=== PATIENT | female | born 1945 | race Caucasian/White ===

== ENCOUNTER 2021-10-25 13:23 | Inpatient (IN) ==
[2021-10-25] MEDS ORDERED: IOPAMIDOL 100 ML BOTTLE IV ONE (13:24)
[2021-10-25 13:49] LABS: POC Calcium, Ionized 1.01 (1.16-1.32); POC Creatinine 1.6 (0.6-1.2); POC Potassium 3.3 (3.3-5.1)
[2021-10-25] MEDS ORDERED: 0.9 % SODIUM CHLORIDE 1,000 ML IV ONE ×2 (13:53→14:15)
--- NOTE | 2021-10-25 13:56 | Emergency Department Note ---
Weakness HPI General Chief complaint: Weakness Stated complaint: Weakness Time Seen by Provider: 10/25/21 13:28 Source: patient Mode of arrival: ambulatory Limitations: no limitations History of Present Illness HPI Narrative: Narrative: 76-year-old female with a history of dysphagia, esophageal dilatation, atrial fibrillation with RVR, TIA, diabetes, bilateral mastectomy, PVD, renal insufficiency, venous insufficiency, GERD, hypothyroidism, hyperlipidemia Parkinson's and arthritis presents the ER to be evaluated for weakness, dysphagia and anorexia. She states she was admitted to [facility] on the where she was found to have an enlarged appendix. This was obvious for several days without antibiotics and she was ultimately discharged with follow-up to gastroenterology whom she has not followed up with yet. He states she has not been able to keep down food or water. She has a very decreased appetite and states everything tastes terrible to her. She has not had COVID according to her and her daughter. Her daughter states her hallucinations have been worsening over the past few months. She has had these due to her Parkinson's and her neurologist is aware of this. She states she has become more paranoid. None of these have happened acutely but it has been a progression over time. She states she has a history of incontinence but this is gotten better over time which may be due to her renal function. She has not had fever, chills, body aches, nausea or vomiting. Just extreme lack of appetite, lack of oral intake to both fluids and food. She states she has a generalized burning of her epigastrium. She is not having right lower quadrant tenderness. She denies dysuria, urgency, frequency, chest pain, chest pressure or shortness of breath. Related Data Home Medications Medication Instructions Recorded Confirmed Nanosphere Contour Link 2.4 W/DEVICE KIT IV PUSH (TEST DOSE) BID 02/21/19 10/17/21 brinzolamide 1 % eye 1 drp OPHTHALMIC BID ml 02/21/19 10/17/21 drops,suspension (Azopt) carbidopa 25 mg-levodopa 100 mg 2 tab PO TID 02/21/19 10/17/21 disintegrating tablet aspirin 81 mg tablet,delayed 81 mg PO QDAY tab 12/15/19 10/17/21 release (Adult Low Dose Aspirin) bimatoprost 0.01 % eye drops 1 drp OPHTHALMIC QDAY 12/15/19 10/17/21 bisacodyl 5 mg tablet,delayed 10 mg PO QDAY PRN tab 12/15/19 10/17/21 release (Dulcolax (bisacodyl)) brimonidine 0.2 % eye drops 1 drp OPHTHALMIC BID ml 12/15/19 10/17/21 glucagon HCl 1 mg solution for 1 mg SUB-Q Q20M PRN 12/15/19 10/17/21 injection (Glucagon (HCl) Emergency Kit) sodium phosphates 19 gram-7 118 ml ME QDAY PRN ml 12/15/19 10/17/21 gram/118 mL enema (Fleet Enema) entacapone 200 mg tablet 200 mg PO QHS tab 10/17/21 10/17/21 escitalopram oxalate 20 mg tablet See Rx Instructions .ROUTE 10/17/21 .COMPLEX tab pimavanserin 34 mg capsule 34 mg PO QDAY 10/17/21 10/17/21 spironolactone 25 1 tab PO QDAY tab 10/17/21 mg-hydrochlorothiazide 25 mg tablet Previous Rx's Medication Instructions Recorded tramadol 50 mg tablet 50 mg PO .Q4-6H PRN #120 tab 05/24/20 metoprolol tartrate 25 mg tablet See Rx Instructions .ROUTE 03/11/21 .COMPLEX #60 tab blood sugar diagnostic (Contour #100 each 05/02/21 Next Test Strips) baclofen 10 mg tablet See Rx Instructions .ROUTE 06/12/21 .COMPLEX #30 tab omeprazole 20 mg capsule,delayed See Rx Instructions .ROUTE 07/01/21 release .COMPLEX #90 cap glipizide 10 mg tablet 10 mg PO BID #60 tab 09/05/21 losartan 50 mg tablet See Rx Instructions .ROUTE 10/07/21 .COMPLEX #45 tab sodium chloride 1 gram tablet 1,000 mg PO BID PRN #60 tab 10/17/21 bupropion HCl 100 mg tablet,12 hr See Rx Instructions .ROUTE 10/22/21 sustained-release .COMPLEX #90 tab levothyroxine 75 mcg tablet See Rx Instructions .ROUTE 10/22/21 .COMPLEX #30 tab Allergies Allergy/AdvReac Type Severity Reaction Status Date / Time telmisartan Allergy Severe did not Verified 10/17/21 14:29 like KATLYN Inhibitors AdvReac Unknown Cough Verified 10/17/21 14:29 cephalexin AdvReac Unknown Rash Verified 10/17/21 14:29 diazepam [From Valium] AdvReac Unknown Unknown Verified 10/17/21 14:29 lisinopril AdvReac Unknown Unknown Verified 10/17/21 14:29 Nbqakox-ULL-BtX Reductase AdvReac Unknown Other Verified 10/17/21 14:29 Inhibitor [Univgeo-Iru-Azv Reductase Inhibitor] Review of Systems ROS ROS Narrative: Narrative: All systems ED: reviewed and negative except as stated. [facility] Narrative Patient History Narrative: Narrative: Medical/Surgical/Family History All Active Problems (Updated 10/25/21 @ 16:21 by Tristian Wallace PA-C) Acute UTI (Acute) Hypotension (Acute) Dysphagia (Acute) UTI (urinary tract infection) (Acute) Skin lesion (Acute) Lymphedema of arm (Acute) Seasonal allergies (Acute) Cough (Acute) Dyspnea on exertion (Acute) Open wound (Acute) Atrial fibrillation (Acute) Hyponatremia (Acute) TIA (transient ischemic attack) (Acute) Diabetes 1.5, managed as type 2 (Acute) Memory changes (Acute) Acute bronchitis (Acute) Pedal edema (Acute) Adenocarcinoma of endometrium (Chronic) Glaucoma (Chronic) Anemia (Chronic) Acute medial meniscus tear (Chronic) Cough due to KATLYN inhibitor (Chronic) Physical exam (Chronic) Carpal tunnel syndrome (Chronic) Abnormality of gait (Chronic) Peripheral neuropathy (Chronic) Back pain (Chronic) PVD (peripheral vascular disease) (Chronic) Unspecified venous (peripheral) insufficiency (Chronic) Depression (Chronic) GERD (gastroesophageal reflux disease) (Chronic) Hypothyroidism (Chronic) Hyperlipidemia (Chronic) Carcinoma in situ of breast (Chronic) Fatigue (Chronic) Vitamin D deficiency (Chronic) Lymphedema of right arm (Chronic) Varicose veins of other specified sites (Chronic) Incontinence without sensory awareness (Chronic) Hyperplastic adenomatous polyp of stomach (Chronic) Other sleep disturbances (Chronic) Benign neoplasm of ascending colon (Chronic) Skin lesion (Chronic) 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) Adult onset diabetes mellitus with ketoacidosis (Chronic) Parkinson's disease (Chronic) HTN (hypertension) (Chronic) Herpes zoster (Chronic) Encounter for preventative adult health care examination (Chronic) Encounter for long-term (current) use of medications (Chronic) Arthritis of right knee (Chronic) Medical History (Updated 10/25/21 @ 16:21 by Tristian Wallace PA-C) Abnormality of gait Acute medial meniscus tear Adenocarcinoma of endometrium Adult onset diabetes mellitus with ketoacidosis Anemia Arthritis of right knee Back pain Benign neoplasm of ascending colon Carcinoma in situ of breast Carpal tunnel syndrome Cough due to KATLYN inhibitor Depression Encounter for long-term (current) use of medications Encounter for preventative adult health care examination Fatigue GERD (gastroesophageal reflux disease) Glaucoma Herpes zoster HTN (hypertension) Hx of infection (~1992) Right leg Hyperlipidemia Hyperplastic adenomatous polyp of stomach Hypothyroidism Incontinence without sensory awareness Intraductal carcinoma in situ of left breast Lymphedema of right arm Other sleep disturbances Parkinson's disease Peripheral neuropathy Physical exam PVD (peripheral vascular disease) Skin lesion Unspecified venous (peripheral) insufficiency Varicose veins of other specified sites Vitamin D deficiency Surgical History History of left knee replacement (~2011) History of lumpectomy of right breast (~2013) w/ Rt nipple nodule excision Hx of breast surgery (~2013) Stereotactic breast Bx Hx of carpal tunnel repair (~2009) Neuroplasty Median Nerve Hx of dilation and curettage (~02/21/19) Hx of hysterectomy with oophorectomy (~2007) Hx of mastectomy (~2013) w/ Lymphatic mapping and SLN Bx Family History Father , 80 Y/O CVA (cerebral vascular accident) Social History Smoking Status: Never smoker Exam Narrative Narrative: Narrative: Gen: No acute distress, patient lying in bed with no increased work of breathing Eyes: PERRL, no conjunctival injection , and symmetrical lids. Sclerae non icteric HENMT: Normocephalic Atraumatic head, external nose and ears. Dry MM. Neck: Symmetric, trachea midline, no JVD CVS: +S1/S2, No murmurs or gallops. Radial pulses 2+ and equal bilat. RESP: Unlabored respiratory effort . Clear to auscultation bilaterally (CTAB). No noted wheezes rales or ronchi. GI: Morbidly obese abdomen, mild tenderness over the epigastrium, no focal tenderness, rebound tenderness, guarding or rigidity, no evidence of peritonitis. MSK: No tenderness to palpation, soft compartments, no pitting edema, varicosities of the lower extremity, normal sensation, cap refill less than 2 Skin: Warm, Dry . No rashes or lesions . Cap refill less than 2. Neuro: Pill-rolling tremor, tremor of the right lower extremity, is apparently baseline for the patient. No focal deficit otherwise Psych: Awake, Alert, & Oriented (AAO) x3. Patient appears to be tired General Limitations: no limitations Course Vital Signs Vital signs: Vital Signs Pulse Rate 144 H 10/25/21 13:24 Respiratory Rate 20 10/25/21 13:24 Blood Pressure 132/94 10/25/21 13:24 Pulse Oximetry (%) 98 10/25/21 13:24 Pulse Rate 74 10/25/21 13:40 Respiratory Rate 15 10/25/21 13:40 Blood Pressure 161/116 10/25/21 13:40 Pulse Oximetry (%) 97 10/25/21 13:40 [facility] MDM Narrative Medical decision making narrative: Narrative: Patient was seen at [facility] on the and discharged on the . She was discharged without antibiotics or appendectomy. The general surgeon did not believe she had appendicitis. Although she did have dilatation of the appendix. Today she presents anorexic, weak and states she has not kept down food or water and has general burning of her epigastrium. She has had esophageal stricture in the past as well as polyps of her stomach. She denies fever, chills, body aches, nausea, vomiting, chest pain, chest pressure or shortness of breath. She is tachycardic at a rate of 131 with rapid ventricular response. Patient is not been keeping fluid down. There is no evidence of acute ischemia on her EKG. This is likely a response from her not intaking enough fluid. She does have some renal insufficiency. Her creatinine is 1.6 but adjusted for age with 2020 CKDEPI creatinine guidelines her GFR is 34. Given the patient's history of possible appendicitis and her tachycardia I cannot rule out possible sepsis. She will be started on a liter of fluid and a lactate will be drawn. No hx of HF. Given the previous dilatation of the appendix and esophageal dysmotility I would like to do a CT scan of the chest abdomen pelvis to rule out any insidious process. She will also be evaluated with CBC, CMP, lipase, UA and TSH. Antibiotics will be withheld until lactate is identified and to see if she is fluid responsive. Given the patient has had progressive paranoia and hallucinations over time and her daughter is concerned. We will do a CT scan of the brain without contrast as well. Pt has no hx of heart failure. CBC: Slightly hemoconcentrated otherwise unremarkable. Chem-8: Acute kidney injury otherwise unremarkable Hepatic panel: Unremarkable Lipase: Unremarkable Lactate: 3.44 elevated, second liter of fluid as well as cefepime ordered at this time. Sepsis considered at 1416. Blood cultures: Pending TSH: normal UA: Elevated bacteria, leuk esterase and white count CT brain without contrast: IMPRESSION: 1. No intracranial hemorrhage 2. No acute abnormality CT chest abdomen pelvis: IMPRESSION: 1. Mildly enlarged main pulmonary artery. This may be secondary to pulmonary arterial hypertension. 2. Mild cardiomegaly 3. 15 mm calcified left adrenal nodule considered benign 4. Benign renal cysts 5. Small umbilical hernia containing only fat Patient is in A. fib with RVR, as is her baseline. However her rate was 131. Her blood pressure is 90 systolic. She had questionable developing appendicitis after her recent stay. She continues to have dysphagia and anorexia. Sepsis considered at 1416. She will be started on cefepime and will be given a second liter of fluid. Her lactate is 3.44. Repeat will be ordered before 6 hours. Patient suggested ideal body weight is 116 pounds. This is equal to 52 kg With a 30 mg/kg bolus this is just over 1500 mg. Patient has had a total of 2 L which meets the sepsis guidelines. She is not showing evidence of fluid overload at this time. Patient's heart rate and blood pressure have both improved with fluid resuscitation. Patient has elevated lactate, hypotension, tachycardia and urine consistent with urinary tract infection. She will have the diagnosis of urosepsis at this time. She is already had a 30 mg/kg bolus, cefepime and a repeat lactate will be ordered at this time. Hospitalist will be consulted. Dr. Elizondo will also be consulted to see if he will schedule for endoscopy. Repeat lactate: 1.11 Dr. Elizondo: If hospitalist admits he will evaluate the patient for possible endoscopy. Hospitalist: Graciously agreed to accept the patient for obs Lab Data Labs: Lab Results 10/25/21 Range/Units 13:37 POC Hct 51.0 H (36-48) POC Sodium 132 L (133-145) POC Potassium 3.3 (3.3-5.1) POC Chloride 93 L (96-108) POC Total CO2 22.0 (22-30) POC BUN 15 (6-20) POC Creatinine 1.6 H (0.6-1.2) POC Glucose 157 H (70-105) POC WB Ioniz Calcium 1.01 L (1.16-1.32) Discharge Plan Patient/Caregiver Discharge Instructions Pt seen by TOOL HARDENER/PA only: No Clinical Impression: Acute UTI Patient Disposition: Xfer As Outpt/Obs ([facility]) Follow up with: Aj Ly MD [Primary Care Provider] - Prescriptions: No Action aspirin [Adult Low Dose Aspirin] 81 mg tablet,delayed release (DR/EC) 81 mg PO QDAY 0RF bimatoprost 0.01 % drops 1 drp OPHTHALMIC QDAY 0RF brimonidine 0.2 % drops 1 drp OPHTHALMIC BID 0RF bisacodyl [Dulcolax (bisacodyl)] 5 mg tablet,delayed release (DR/EC) 10 mg PO QDAY PRN0RF Fleet Enema 19-7 gram/118 mL enema 118 ml ME QDAY PRN (Reason: constipation) 0RF Glucagon (HCl) Emergency Kit 1 mg recon soln 1 mg SUB-Q Q20M PRN0RF tramadol 50 mg tablet 50 mg PO .Q4-6H PRN (Reason: pain) Qty: 120 2RF metoprolol tartrate 25 mg tablet See Rx Instructions .ROUTE .COMPLEX Qty: 60 6RF Dose Instruction: TAKE ONE TABLET BY MOUTH TWICE DAILY Rx Instructions: TAKE ONE TABLET BY MOUTH TWICE DAILY (DME) Contour Next Test Strips Strip See Rx Instructions .ROUTE .MEDSUPPLY Qty: 100 5RF Rx Instructions: Use to test blood glucose twice daily baclofen 10 mg tablet See Rx Instructions .ROUTE .COMPLEX Qty: 30 3RF Dose Instruction: TAKE ONE TABLET BY MOUTH DAILY NEEDED FOR MUSCLE SPASM Rx Instructions: TAKE ONE TABLET BY MOUTH DAILY NEEDED FOR MUSCLE SPASM omeprazole 20 mg capsule,delayed release(DR/EC) See Rx Instructions .ROUTE .COMPLEX Qty: 90 3RF Dose Instruction: TAKE ONE CAPSULE BY MOUTH ONE TIME DAILY Rx Instructions: TAKE ONE CAPSULE BY MOUTH ONE TIME DAILY glipizide 10 mg tablet 10 mg PO BID Qty: 60 6RF losartan 50 mg tablet See Rx Instructions .ROUTE .COMPLEX Qty: 45 3RF Dose Instruction: TAKE 1/2 TABLET BY MOUTH ONCE A DAY IN THE MORNING Rx Instructions: TAKE 1/2 TABLET BY MOUTH ONCE A DAY IN THE MORNING levothyroxine 75 mcg tablet See Rx Instructions .ROUTE .COMPLEX Qty: 30 3RF Dose Instruction: TAKE ONE TABLET BY MOUTH ONE TIME DAILY Rx Instructions: TAKE ONE TABLET BY MOUTH ONE TIME DAILY bupropion HCl 100 mg tablet sustained-release 12 hr See Rx Instructions .ROUTE .COMPLEX Qty: 90 0RF Dose Instruction: TAKE ONE TABLET BY MOUTH ONE TIME DAILY Rx Instructions: TAKE ONE TABLET BY MOUTH ONE TIME DAILY Azopt 1 % drops,suspension 1 drp OPHTHALMIC BID 0RF carbidopa-levodopa 25-100 mg tablet,disintegrating 2 tab PO TID 0RF Nanosphere Contour Link 2.4 W/DEVICE KIT IV push (test dose) BID 0RF entacapone 200 mg tablet 200 mg PO QHS 0RF Rx Instructions: administer at the same time as l-dopa/carbidopa dose escitalopram oxalate 20 mg tablet See Rx Instructions .ROUTE .COMPLEX 0RF Dose Instruction: TAKE ONE TABLET BY MOUTH ONE TIME DAILY Rx Instructions: TAKE ONE TABLET BY MOUTH ONE TIME DAILY spironolacton-hydrochlorothiaz 25-25 mg tablet 1 tab PO QDAY 0RF pimavanserin 34 mg capsule 34 mg PO QDAY 0RF sodium chloride 1 gram tablet 1,000 mg PO BID PRN (Reason: electrolyte replenishment) Qty: 60 2RF
--- NOTE | 2021-10-25 14:10 | EKG ---
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 Measurements Intervals [place] Rate: 131 P: NV: QRS: -68 QRSD: 106 T: 114 QT: 330 QTc: 488 Interpretive Statements Atrial fibrillation LEFT ANTERIOR FASCICULAR BLOCK Electronically Signed On 10-25-2021 14:10:09 PDT by Zach Leal M.D. /store/[email or web address]/[id number]
[2021-10-25] MEDS ORDERED: CEFEPIME 2 GM VIAL IV ONE (14:14)
--- NOTE | 2021-10-25 14:40 | Emergency Department Note ---
ED Note Addendum Note Addendum: Dr. Paris Yanez dictating supervisory note. Please see [facility] note for complete history, physical, medical decision making. I do agree with their assessment and plan. I have independently evaluated and examined the patient. (Please note that portions of this note may have been completed with a voice re cognition program. Efforts were made to edit the dictations but occasionally words are mis-transcribed) 76-year-old female presents with daughter from home with a history of A fib not on blood thinners, TIA, DM, CKD, Parkinson's with paranoia and hallucinations presents with dysphagia nausea decreased appetite PO intake x 1 month. Was constipated however after Dulcolax and milk of magnesium did have bowel movements. Has had esophageal strictures with dilatation. Was recently seen evaluated at [facility] from October 19 to October 22 for decreased p.o. intake nausea vomiting enlarged appendix seen on CT scan observed and then subsequently discharged with close outpatient GI referral. Was unable to follow-up with GI. Comes into the ER was secondary to continued symptoms and generalized weakness. No reported chest pain shortness breath cough. No fevers or chills. Complains of intermittent lower abdominal discomfort. Was found to have soft blood pressures and was tachycardic. Metoprolol for the last week secondary to soft blood pressures. Suspect secondary to poor p.o. intake. taken off Quetiapine and started on Nuplazid 1 month prior CONSTITUTIONAL: Well-nourished elderly female BMI 44 wt 113 kg. appears uncomfortably restless. Not in acute distress. Non toxic. Awake alert and oriented x3. Cooperative, follows commands. HEAD: Normocephalic. Atraumatic. EYES: EOMI ENT: No drooling stridor. MM dry NECK: Supple. Full range of motion. Trachea midline CARDIOVASCULAR: Adequate peripheral perfusion. S1-S2. Irregularly irregular tachycardic at 130 beats on my exam. No murmurs rubs gallops. No JVD. No lower extremity edema. +2 radial pulses bilaterally. PULMONARY: Nonlabored. Speaking full sentences. Clear to auscultation bilaterally. No rhonchi wheeze or crackles. ABDOMINAL: Soft. Nondistended. Nontender. Positive bowel sounds. EXTREMITIES: No gross deformities. Moves all 4 extremities with good strength and tone. SKIN: Warm and dry. No rash. No petechiae. NEUROLOGY: Sensation is intact. No gross focal deficits. GCS of 15 Placed on monitor pulse ox. IV was established. Cultured. IV fluid hydration x2 L. Secondary to elevated lactic and VBG at 3.3 was ordered cefepime IV. Does have CKD with creatinine of 1.6. Will fluid hydrate and then subsequently CT chest abdomen pelvis for further evaluation as well as CT brain for pro gressively worsening paranoia hallucinations over the since. 12 EKG per ED MD interpretation does show rapid A. fib 131 bpm. Left anterior fascicular block. Normal axis. No ST elevations or depressions. No T wave abnormalities. Normal intervals. Old EKG none. CT head was negative. CT chest abdomen pelvis is negative for acute process. Urinalysis is consistent with infection. Improvement in vital signs after fluid hydration IV antibiotics. Updated on results clinical impressions treatment plan. Will be admitted for urosepsis.
[2021-10-25 14:48] LABS: Basophils # (Auto) 0.06 K/mcL (0.00-0.30); Basophils % (Auto) 0.7 % (0.0-2.0); Eosinophils # (Auto) 0.05 K/mcL (0.00-0.70); Eosinophils % (Auto) 0.6 % (0.0-7.0); Hematocrit 47.3 % (34.1-44.9); Hemoglobin 15.5 g/dL (11.2-15.7); Lymphocytes # (Auto) 1.15 K/mcL (1.50-4.80); Lymphocytes % (Auto) 13.4 % (15.5-49.0); Mean Cell Volume 93.1 fL (80.0-100.0); Mean Corpuscular HGB Conc 32.8 g/dL (31.0-36.0); Mean Platelet Volume 11.2 fL (7.4-10.4); Monocytes # (Auto) 0.63 K/mcL (0.10-0.90); Monocytes % (Auto) 7.3 % (1.0-12.0); Platelet Count 284 K/mcL (140-440); RBC 5.08 M/mcL (3.59-5.38); Red Cell Distribution Width 13.3 % (11.5-14.5); WBC 8.6 K/mcL (4.5-11.0)
--- NOTE | 2021-10-25 15:13 | Cat Scan Report ---
INDICATION: Hallucinations COMPARISON: None. TECHNIQUE: Axial noncontrast-enhanced images through the brain. Sagittally and coronally reformatted images. FINDINGS: Cerebral hemispheres:No acute intra-axial hemorrhage. Brain volume is considered to be within normal limits for age. There is white matter abnormality consistent with small vessel ischemic change in this 76-year-old patient. No focal intra-axial attenuation abnormality. No localized mass effect. No midline shift. Brainstem and cerebellum:No intra-axial abnormality Extra-axial:No acute hemorrhage. No subdural or epidural hematoma. No subarachnoid hemorrhage. Basilar cisterns are normal Calvarial:No calvarial fracture. No lytic lesion Temporal bones are negative. No destructive lesions Soft tissue, orbits, sinuses:Orbits and visualized facial soft tissues and paranasal sinuses are negative IMPRESSION: 1. No intracranial hemorrhage 2. No acute abnormality The exam was performed using radiation dose optimization techniques including, but not limited to, automated exposure control, adjustment of the mA and/or kV according to patient size and use of iterative reconstruction technique. Interpreted and Authenticated by: Zach Ledesma 10/25/21
[2021-10-25 15:17] LABS: ALT/SGPT < 5 U/L (<40); AST/SGOT 12 U/L (<32); Albumin 3.9 gm/dL (3.2-5.2); Alkaline Phosphatase 122 U/L (39-117); Bilirubin,Direct 0.3 mg/dL (<0.3); Bilirubin,Total 1.1 mg/dL (0.1-1.0); Globulin 3.5 gm/dL (2.2-3.7); Thyroid Stimulating Hormone 3.03 uIU/mL (0.27-5.01)
--- NOTE | 2021-10-25 15:32 | Cat Scan Report ---
INDICATION: Epigastric pain, hx of enlarged appendix COMPARISON: Chest x-ray dated 11/22/2020 TECHNIQUE: Axial images were obtained through the chest,abdomen and pelvis. Sagittally and coronally reformatted images. 90ml Isovue 370 injected intravenously. Oral contrast material was not administered FINDINGS: Chest CT: Lungs:No focal pulmonary parenchymal infiltrates. No calcified or noncalcified pulmonary parenchymal nodule. There is no honeycombing. No interlobular septal thickening. No significant centrilobular or paraseptal emphysema Mediastinum:No pathologic mediastinal adenopathy. No hilar mass. Thoracic aorta is normal without aneurysmal dilatation. Main pulmonary artery measures 3.2 cm in cross-sectional diameter. This may indicate pulmonary arterial hypertension Heart:There is mild cardiomegaly. No pericardial effusion. There is no calcified coronary artery disease Pleura:No pleural fluid. No pleural-based mass. No pleural calcifications Axilla, supraclavicular regions, chest wall:No pathologic axillary or supraclavicular adenopathy Musculoskeletal:Negative thoracic spine. No compression fractures. No lytic lesions. No paraspinal mass Abdomen/Pelvis: Liver:Negative liver. No focal intrahepatic mass. Liver contour is smooth. There is no ascites Gallbladder, bilary:No calcified gallstones. No gallbladder wall thickening or pericholecystic fluid. No dilated bile ducts Spleen:No splenomegaly. No focal intrasplenic abnormality. Normal enhancement of splenic and portal veins. Pancreas:No pancreatic mass. No peripancreatic abnormality Adrenal glands:There is a 15 mm calcified left adrenal nodule. This is considered benign. Kidneys,ureters,bladder:No solid renal mass. No hydronephrosis. No obstructing or nonobstructing calculi. There is a 14 mm exophytic abnormality arising from the anterior portion of the right kidney. Appearance is consistent with a benign cyst. There is a 13 mm cyst in the left kidney No hydroureter. No ureteral calculus. No bladder stone. No detectable bladder mass. Gastrointestinal:No detectable colonic mass. There is no diverticulitis. Negative small bowel. No mechanical small bowel obstruction. No bowel wall thickening. No focal abnormality. Negative stomach and duodenum. No focal abnormality. Appendix: The appendix is negative Vascular:Mild aortic calcification. No abdominal aortic aneurysm. Celiac trunk and superior mesenteric artery are normal. Lymphatic:No pathologic retroperitoneal or mesenteric adenopathy Mesentery, peritoneum:No free intraperitoneal fluid. No intra-abdominal abscess. No pneumoperitoneum Reproductive:Findings consistent with hysterectomy. No adnexal mass Musculoskeletal:No thoracic or lumbar compression fracture. Sacrum and pelvis are negative. Hips are negative. There is multilevel degenerative disc disease There is a 2.5 cm umbilical hernia containing only fat IMPRESSION: 1. Mildly enlarged main pulmonary artery. This may be secondary to pulmonary arterial hypertension. 2. Mild cardiomegaly 3. 15 mm calcified left adrenal nodule considered benign 4. Benign renal cysts 5. Small umbilical hernia containing only fat The exam was performed using radiation dose optimization techniques including, but not limited to, automated exposure control, adjustment of the mA and/or kV according to patient size and use of iterative reconstruction technique. Interpreted and Authenticated by: Zach Ledesma 10/25/21
[2021-10-25 15:40] LABS: Appearance,Urine HAZY (Clear); Bacteria,Urine FEW /hpf (0); Bilirubin,Urine Negative (Negative); Color,Urine YELLOW; Culture Indicated,Urine yes; Glucose,Urine (UA) 50 mg/dL (Negative); Ketones,Urine 20 mg/dL (Negative); Leukocyte Esterase,Urine 75 /uL (Negative); Mucus,Urine FEW /hpf; Nitrate,Urine Negative (Negative); Protein,Urine Negative (Negative); Urine Blood 0.03 mg/dL (Negative); Urine Hyaline Cast 3 /lph (0-2); Urine RBC 1 /hpf (0-3); Urine Squamous Epithelial Cell 1 /hpf (0-4); Urine Transitional Epi Cells < 1 /hpf (0-2); Urine WBC 36 /hpf (0-4); Urobilinogen,Urine Negative
--- NOTE | 2021-10-25 17:03 | Internal Med History&Physical ---
HPI History of Present Illness Patient information: Note initiated : 10/25/21 at 4:54 pm Service Date, if different from initiated Date: [] Patient: Angelic Grande a 76 y/o F admitted on for Weakness. Chief Complaint: [] Chief complaint: general weakness, loss of appetite, minimal food intake History of present illness: Ms. Grande is a 76 year old F history of Parkinson disease, essential hypertension, mixed dyslipidemia, type 2 diabetes mellitus, hypothyroidism, frequent UTI, atrial fibrillation, depression, chronic kidney disease, presenting with 3 months history of reported loss of the appetite, minimal oral intake, nausea and vomiting, change in taste of the food. She is complaining of 3-month history of reported loss of appetite, minimal oral intake, nausea vomiting, and change to taste of the food. She is also complaining of epigastric, constant, nonradiating, mild 3 out of 10 severity, burning sensations abdominal pain. She denies any fever chills or diaphoresis. She also is complaining of unquantified weight loss. She also reports a history of frequent UTI and she is reporting urinary symptoms such as dysuria. Due to the multitude of her complaints, her daughter bring her into the ER today for further evaluations. Vital signs at ED presentation significant for tachycardia and tachypnea with heart rate and rate of breathing in the 130s and mid 20s, respectively. The above improved and back to the normal after her 2 L of fluid bolus given in the ED. Labs significant for lack of leukocytosis with WBC 8.6. Initial serum lactic acid level 3.4. UA suggestive of the presence of urinary tract infections. CT whole body did not show any acute changes. Constitutional Constitutional: Present lethargy, weakness and weight loss; Absent chills, excessive sweating, fatigue or fever(s) Additional comments: loss of appetite EENT Eyes: Absent blurry vision, change in vision, loss of vision or other visual disturbances Ears: Absent decreased hearing or tinnitus Nose, mouth and throat: Absent abnormal hearing, dry mouth, headache(s), nasal congestion or sore throat Cardiovascular Cardiovascular: Absent chest pain, chest pain at rest, edema, irregular heart rhythm or palpatations Respiratory Respiratory: Absent cough, dyspnea or wheezing Gastrointestinal Gastrointestinal: Present abdominal pain, nausea and vomiting; Absent constipation or diarrhea Genitourinary Genitourinary: Present dysuria Musculoskeletal Musculoskeletal: Absent back pain, deformity, limited range of motion, muscle cramps, muscle weakness or numbness Integumentary Integumentary: Absent lesions, rash or wounds Neurological Neurological: Absent focal weakness, headache(s) or numbness Psychiatric Psychiatric: Absent anxiety, depression or hallucinations PFSH PFSH All Active Problems (Updated 10/25/21 @ 16:21 by Tristian Wallace PA-C) Acute UTI (Acute) Hypotension (Acute) Dysphagia (Acute) UTI (urinary tract infection) (Acute) Skin lesion (Acute) Lymphedema of arm (Acute) Seasonal allergies (Acute) Cough (Acute) Dyspnea on exertion (Acute) Open wound (Acute) Atrial fibrillation (Acute) Hyponatremia (Acute) TIA (transient ischemic attack) (Acute) Diabetes 1.5, managed as type 2 (Acute) Memory changes (Acute) Acute bronchitis (Acute) Pedal edema (Acute) Adenocarcinoma of endometrium (Chronic) Glaucoma (Chronic) Anemia (Chronic) Acute medial meniscus tear (Chronic) Cough due to KATLYN inhibitor (Chronic) Physical exam (Chronic) Carpal tunnel syndrome (Chronic) Abnormality of gait (Chronic) Peripheral neuropathy (Chronic) Back pain (Chronic) PVD (peripheral vascular disease) (Chronic) Unspecified venous (peripheral) insufficiency (Chronic) Depression (Chronic) GERD (gastroesophageal reflux disease) (Chronic) Hypothyroidism (Chronic) Hyperlipidemia (Chronic) Carcinoma in situ of breast (Chronic) Fatigue (Chronic) Vitamin D deficiency (Chronic) Lymphedema of right arm (Chronic) Varicose veins of other specified sites (Chronic) Incontinence without sensory awareness (Chronic) Hyperplastic adenomatous polyp of stomach (Chronic) Other sleep disturbances (Chronic) Benign neoplasm of ascending colon (Chronic) Skin lesion (Chronic) 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) Adult onset diabetes mellitus with ketoacidosis (Chronic) Parkinson's disease (Chronic) HTN (hypertension) (Chronic) Herpes zoster (Chronic) Encounter for preventative adult health care examination (Chronic) Encounter for long-term (current) use of medications (Chronic) Arthritis of right knee (Chronic) Medical History (Updated 10/25/21 @ 16:21 by Tristian Wallace PA-C) Abnormality of gait Acute medial meniscus tear Adenocarcinoma of endometrium Adult onset diabetes mellitus with ketoacidosis Anemia Arthritis of right knee Back pain Benign neoplasm of ascending colon Carcinoma in situ of breast Carpal tunnel syndrome Cough due to KATLYN inhibitor Depression Encounter for long-term (current) use of medications Encounter for preventative adult health care examination Fatigue GERD (gastroesophageal reflux disease) Glaucoma Herpes zoster HTN (hypertension) Hx of infection (~1992) Right leg Hyperlipidemia Hyperplastic adenomatous polyp of stomach Hypothyroidism Incontinence without sensory awareness Intraductal carcinoma in situ of left breast Lymphedema of right arm Other sleep disturbances Parkinson's disease Peripheral neuropathy Physical exam PVD (peripheral vascular disease) Skin lesion Unspecified venous (peripheral) insufficiency Varicose veins of other specified sites Vitamin D deficiency Surgical History History of left knee replacement (~2011) History of lumpectomy of right breast (~2013) w/ Rt nipple nodule excision Hx of breast surgery (~2013) Stereotactic breast Bx Hx of carpal tunnel repair (~2009) Neuroplasty Median Nerve Hx of dilation and curettage (~02/21/19) Hx of hysterectomy with oophorectomy (~2007) Hx of mastectomy (~2013) w/ Lymphatic mapping and SLN Bx Family History Father , 80 Y/O CVA (cerebral vascular accident) Social History household members: family lives independently: No marital status: occupational status: retired and disabled additional history: Lives with daughter MEDS/ALLERGIES Home Medications and Allergies Home Medications Medication Instructions Recorded Confirmed Type Ranjith Contour Link 2.4 W/DEVICE KIT IV PUSH (TEST DOSE) BID 02/21/19 10/17/21 History brinzolamide 1 % eye 1 drp OPHTHALMIC BID ml 02/21/19 10/17/21 History drops,suspension (Azopt) carbidopa 25 mg-levodopa 100 mg 2 tab PO TID 02/21/19 10/17/21 History disintegrating tablet aspirin 81 mg tablet,delayed 81 mg PO QDAY tab 12/15/19 10/17/21 History release (Adult Low Dose Aspirin) bimatoprost 0.01 % eye drops 1 drp OPHTHALMIC QDAY 12/15/19 10/17/21 History bisacodyl 5 mg tablet,delayed 10 mg PO QDAY PRN tab 12/15/19 10/17/21 History release (Dulcolax (bisacodyl)) brimonidine 0.2 % eye drops 1 drp OPHTHALMIC BID ml 12/15/19 10/17/21 History glucagon HCl 1 mg solution for 1 mg SUB-Q Q20M PRN 12/15/19 10/17/21 History injection (Glucagon (HCl) Emergency Kit) sodium phosphates 19 gram-7 118 ml NE QDAY PRN ml 12/15/19 10/17/21 History gram/118 mL enema (Fleet Enema) tramadol 50 mg tablet 50 mg PO .Q4-6H PRN #120 tab 05/24/20 10/17/21 Rx metoprolol tartrate 25 mg tablet See Rx Instructions .ROUTE 03/11/21 10/17/21 Rx .COMPLEX #60 tab blood sugar diagnostic (Contour #100 each 05/02/21 10/17/21 Rx Next Test Strips) baclofen 10 mg tablet See Rx Instructions .ROUTE 06/12/21 10/17/21 Rx .COMPLEX #30 tab omeprazole 20 mg capsule,delayed See Rx Instructions .ROUTE 07/01/21 10/17/21 Rx release .COMPLEX #90 cap glipizide 10 mg tablet 10 mg PO BID #60 tab 09/05/21 10/17/21 Rx losartan 50 mg tablet See Rx Instructions .ROUTE 10/07/21 10/17/21 Rx .COMPLEX #45 tab entacapone 200 mg tablet 200 mg PO QHS tab 10/17/21 10/17/21 History escitalopram oxalate 20 mg tablet See Rx Instructions .ROUTE 10/17/21 History .COMPLEX tab pimavanserin 34 mg capsule 34 mg PO QDAY 10/17/21 10/17/21 History sodium chloride 1 gram tablet 1,000 mg PO BID PRN #60 tab 10/17/21 10/17/21 Rx spironolactone 25 1 tab PO QDAY tab 10/17/21 History mg-hydrochlorothiazide 25 mg tablet bupropion HCl 100 mg tablet,12 hr See Rx Instructions .ROUTE 10/22/21 Rx sustained-release .COMPLEX #90 tab levothyroxine 75 mcg tablet See Rx Instructions .ROUTE 10/22/21 Rx .COMPLEX #30 tab Allergies Allergy/AdvReac Type Severity Reaction Status Date / Time telmisartan Allergy Severe did not Verified 10/17/21 14:29 like KATLYN Inhibitors AdvReac Unknown Cough Verified 10/17/21 14:29 cephalexin AdvReac Unknown Rash Verified 10/17/21 14:29 diazepam [From Valium] AdvReac Unknown Unknown Verified 10/17/21 14:29 lisinopril AdvReac Unknown Unknown Verified 10/17/21 14:29 Ttimqxm-AGS-FbR Reductase AdvReac Unknown Other Verified 10/17/21 14:29 Inhibitor [Axystvy-Vyy-Thf Reductase Inhibitor] EXAM Constitutional Vitals: Pulse Resp BP Pulse Ox 98 H 14 113/69 99 10/25/21 16:44 10/25/21 16:44 10/25/21 16:44 10/25/21 16:44 General appearance: cooperative and morbidly obese Head Head exam: Present atraumatic and normocephalic Eye Eye exam: Present EOMI and PERRL ENT ENT exam: Present mucous membranes moist, normal exam and normal external ear exam Neck Neck exam: Present normal inspection; Absent lymphadenopathy, tenderness or thyromegaly Respiratory Respiratory exam: Absent accessory muscle use, respiratory distress or wheezes Cardiovascular Cardiovascular exam: Present irregular rhythm; Absent JVD GI/Abdominal GI/Abdominal exam: Present normal bowel sounds, soft and tenderness; Absent organomegaly Extremities Exam Extremities exam: Present full ROM, normal capillary refill and normal inspection; Absent tenderness Additional comments: Right>left tremors Neurological Exam Neurological exam: Present alert, CN II-XII intact and oriented X3; Absent motor sensory deficit Psychiatric Psychiatric exam: Present normal affect and normal mood; Absent anxious or depressed Skin Skin exam: Present dry and intact DATA Data Completed and Pending Labs: Labs from last 24 hours 10/25/21 10/25/21 10/25/21 14:34 14:10 13:37 WBC RBC Hgb Hct POC Hct 51.0 H MCV MCH MCHC RDW Plt Count MPV Neut % (Auto) Lymph % (Auto) Pratt % (Auto) Eos % (Auto) Baso % (Auto) Lymph # (Auto) Pratt # (Auto) Eos # (Auto) Baso # (Auto) Absolute Neutrophils POC VBG pH 7.48 H POC VBG pCO2 at Temp 33.2 L POC VBG pO2 29 POC VBG HCO3 25.1 POC VBG Total CO2 26.0 POC Venous O2 Sat 62.0 POC VBG Base Excess 2.0 POC Sodium 132 L POC Potassium 3.3 POC Chloride 93 L POC Total CO2 22.0 POC BUN 15 POC Creatinine 1.6 H POC Glucose 157 H POC Venous Lactate 3.4 H POC WB Ioniz Calcium 1.01 L Total Bilirubin Direct Bilirubin AST ALT Alkaline Phosphatase Total Protein Albumin Globulin Lipase TSH Urine Color Yellow Urine Appearance Hazy A Urine pH 8.0 Ur Specific Meraux 1.010 Urine Protein Negative Urine Glucose (UA) 50 A Urine Ketones 20 A Urine Occult Blood 0.03 Urine Nitrate Negative Urine Bilirubin Negative Urine Urobilinogen Negative Ur Leukocyte Esterase 75 A Urine RBC 1 Urine WBC 36 H Ur Squamous Epith Cells 1 Ur Transition Epith Cell < 1 Urine Bacteria Few A Hyaline Casts 3 H Urine Mucus Few A Ur Culture Indicated? yes 10/25/21 10/25/21 13:34 13:34 WBC 8.6 RBC 5.08 Hgb 15.5 Hct 47.3 H POC Hct MCV 93.1 MCH 30.5 MCHC 32.8 RDW 13.3 Plt Count 284 MPV 11.2 H Neut % (Auto) 78.0 Lymph % (Auto) 13.4 L Pratt % (Auto) 7.3 Eos % (Auto) 0.6 Baso % (Auto) 0.7 Lymph # (Auto) 1.15 L Pratt # (Auto) 0.63 Eos # (Auto) 0.05 Baso # (Auto) 0.06 Absolute Neutrophils 6.72 POC VBG pH POC VBG pCO2 at Temp POC VBG pO2 POC VBG HCO3 POC VBG Total CO2 POC Venous O2 Sat POC VBG Base Excess POC Sodium POC Potassium POC Chloride POC Total CO2 POC BUN POC Creatinine POC Glucose POC Venous Lactate POC WB Ioniz Calcium Total Bilirubin 1.1 H Direct Bilirubin 0.3 H AST 12 ALT < 5 Alkaline Phosphatase 122 H Total Protein 7.4 Albumin 3.9 Globulin 3.5 Lipase 35 TSH 3.03 Urine Color Urine Appearance Urine pH Ur Specific Meraux Urine Protein Urine Glucose (UA) Urine Ketones Urine Occult Blood Urine Nitrate Urine Bilirubin Urine Urobilinogen Ur Leukocyte Esterase Urine RBC Urine WBC Ur Squamous Epith Cells Ur Transition Epith Cell Urine Bacteria Hyaline Casts Urine Mucus Ur Culture Indicated? A/P Assessment and plan (1) Atrial fibrillation: Status: Acute Qualifiers: Atrial fibrillation type: unspecified Qualified Code(s): I48.91 - Unspecified atrial fibrillation (2) Diabetes 1.5, managed as type 2: Status: Acute (3) Hyponatremia: Status: Acute (4) UTI (urinary tract infection): Status: Acute (5) Dysphagia: Status: Acute (6) GERD (gastroesophageal reflux disease): Status: Chronic (7) Hypothyroidism: Status: Chronic Qualifiers: Hypothyroidism type: acquired Qualified Code(s): E03.9 - Hypothyroidism, unspecified (8) Hyperlipidemia: Status: Chronic Qualifiers: Hyperlipidemia type: mixed hyperlipidemia Qualified Code(s): E78.2 - Mixed hyperlipidemia (9) HTN (hypertension): Status: Chronic Qualifiers: Hypertension type: essential hypertension Qualified Code(s): I10 - Essential (primary) hypertension (10) Parkinson's disease: Status: Chronic Narrative A/P Narrative: Assessment and Plans: 1. UTI: Observation med surg s/p 2L NS bolus given in the ER, followed by saline lock Serial lactic acid Procalcitonin Blood culture Urine culture cbc w/ auto diff in the morning to trend WBC Tylenol PRN fever Rocephin 2. Dsyphagia: DDx: Parkinson disease complications, diabetic gastroparesis Consult Dr. Elizondo for potential EGD Speech therapy consultation Dietitian referral CC diet 3. h/o Parkinson's disease: Physical therapy Occupational therapy Sinemet 4. Atrial fibrillation: [id number] VASc score of 6 Eliquis Continue beta naya for rate control 5. Essential HTN: Currently soft blood pressure Continue beta naya for rate control while holding other oral antihypertensives and diuretics 6. Mixed dyslipidemia: Continue statin therapy 7. h/o TIA: Continue Aspirin and statin therapy as secondary prevention 8. Chronic kidney disease stage III: Avoid nephrotoxic agents s/p 2L NS bolus given in the ER, followed by saline lock CMP in the morning to trend kidney functions 9. h/o depression: Continue bupropion and escitalopram 10. Hypothyroidism: Continue thyroid replacement therapy 11. T2DM: HgA1c Hold oral hypoglycemics SSI AC HS Accu Chek AC HS Hypoglycemia protocol Diabetic diet 12: h/o GERD: Continue oral PPI from home regimen GI ppx: Continue oral PPI from home regimen DVT ppx: Eliquis Code status: Full Prognosis: stable Disposition: observation med surg; PT OT SLT Time Spent With Patient Time: Total time spent is greater than 50% in coordination of care (as documented) at patient's floor/unit and/or counseling patient: Total time spent with greater than 50% in coordination of care (as documented) at patient's floor/unit and/or counseling patient:: 50 - 70 minutes Critical Care Time: No
[2021-10-25] MEDS ORDERED: ZOLPIDEM 5 MG TABLET PO PRN (17:42)
[2021-10-25] MEDS ORDERED: IPRATROPIUM/ALBUTEROL 3 ML AMPUL.NEB NEB PRN (17:42)
[2021-10-25] MEDS ORDERED: ACETAMINOPHEN 325 MG TABLET PO PRN (17:42)
[2021-10-25] MEDS ORDERED: FLEETS ADULT ENEMA PR PRN (17:42)
[2021-10-25] MEDS ORDERED: BISACODYL 5 MG TABLET PO PRN (17:42)
[2021-10-25] MEDS ORDERED: DEXTROSE 31 GM ORAL.SUSP PO PRN (17:42)
[2021-10-25] MEDS ORDERED: DEXTROSE 50% 50 ML VIAL IV PRN (17:42)
[2021-10-25] MEDS ORDERED: ONDANSETRON 4 MG/2 ML VIAL IV PRN (17:42)
[2021-10-25] MEDS ORDERED: cefTRIAXone 1 GM in DEXTROSE 5% IN WATER 50 ML IV SCH (17:42)
[2021-10-25] MEDS ORDERED: SODIUM CHLORIDE 1 GM TABLET PO PRN (18:44)
[2021-10-25] MEDS: INSULIN LISPRO 1 UNIT/0.01 ML UNIT SQ SCH ×2 (20:13→20:20)
[2021-10-25] MEDS: METOPROLOL TARTRATE 25 MG TABLET PO SCH (20:14)
[2021-10-25] MEDS: Entacapone 200 mg tablet PO SCH (20:14)
[2021-10-25] MEDS: cefTRIAXone 1 GM VIAL IV SCH (20:29)
[2021-10-25] MEDS: CARBIDOPA/LEVODOPA 25/100 TABLET PO SCH (20:29)
[2021-10-25] MEDS: SENNOSIDES 1 TABLET PO SCH (20:30)
[2021-10-25] MEDS: APIXABAN 5 MG TABLET PO SCH (20:30)
[2021-10-25] MEDS: 0.9 % SODIUM CHLORIDE 10 ML SYRINGE IV SCH (20:30)
[2021-10-25] MEDS: DOCUSATE SODIUM 100 MG CAPSULE PO SCH (20:30)
[2021-10-25] MEDS ORDERED: BRINZOLAMIDE 1% OPHTHALMIC SCH (21:00)
[2021-10-25] MEDS: BRIMONIDINE OPHTH DROPS 1 GTT BOTTLE 5ML OU SCH (21:44)
--- NOTE | 2021-10-25 22:34 | General Surgery Consult Note ---
HPI Data of Consult Patient: new to practice Consult date: 10/25/21 Primary Care Provider: Aj Ly MD Consult Narrative Chief complaint: weakness History of present illness: Ms. Grande is a 76 year old F history of Parkinson disease, essential hypertension, mixed dyslipidemia, type 2 diabetes mellitus, hypothyroidism, frequent UTI, atrial fibrillation, depression, chronic kidney disease, presenting with 3 months history of reported loss of the appetite, minimal oral intake, nausea and vomiting, change in taste of the food. By report, She is also complaining of epigastric, constant, nonradiating, mild 3 out of 10 severity, burning sensations abdominal pain, however on questioning she denies this complaint at this time. She denies dysphagia. She denies any fever chills or diaphoresis. She also is complaining of unquantified weight loss. She also reports a history of frequent UTI and she is reporting urinary symptoms such as dysuria. She was hospitalized at [facility] and released 2 days ago for similar complaints, w/u at that time did not find causes of her problems. She was referred to a GI provider for further evaluation. Due to the multitude of her complaints, her daughter bring her into the ER today for further evaluations. Vital signs at ED presentation significant for tachycardia and tachypnea with heart rate and rate of breathing in the 130s and mid 20s, respectively. The above improved and back to the normal after her 2 L of fluid bolus given in the ED. Labs significant for noormal WBC 8.6. Initial serum lactic acid level 3.4. UA suggestive of the presence of urinary tract infections. CT whole body is negative. I was asked to see the patient for EGD. cc:: CC: Andrei Smith MD Review of Systems Review of systems: all systems reviewed and negative other than above PFSH PFSH All Active Problems Acute UTI (Acute) Hypotension (Acute) Dysphagia (Acute) UTI (urinary tract infection) (Acute) Skin lesion (Acute) Lymphedema of arm (Acute) Seasonal allergies (Acute) Cough (Acute) Dyspnea on exertion (Acute) Open wound (Acute) Atrial fibrillation (Acute) Hyponatremia (Acute) TIA (transient ischemic attack) (Acute) Diabetes 1.5, managed as type 2 (Acute) Memory changes (Acute) Acute bronchitis (Acute) Pedal edema (Acute) Adenocarcinoma of endometrium (Chronic) Glaucoma (Chronic) Anemia (Chronic) Acute medial meniscus tear (Chronic) Cough due to KATLYN inhibitor (Chronic) Physical exam (Chronic) Carpal tunnel syndrome (Chronic) Abnormality of gait (Chronic) Peripheral neuropathy (Chronic) Back pain (Chronic) PVD (peripheral vascular disease) (Chronic) Unspecified venous (peripheral) insufficiency (Chronic) Depression (Chronic) GERD (gastroesophageal reflux disease) (Chronic) Hypothyroidism (Chronic) Hyperlipidemia (Chronic) Carcinoma in situ of breast (Chronic) Fatigue (Chronic) Vitamin D deficiency (Chronic) Lymphedema of right arm (Chronic) Varicose veins of other specified sites (Chronic) Incontinence without sensory awareness (Chronic) Hyperplastic adenomatous polyp of stomach (Chronic) Other sleep disturbances (Chronic) Benign neoplasm of ascending colon (Chronic) Skin lesion (Chronic) 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) Adult onset diabetes mellitus with ketoacidosis (Chronic) Parkinson's disease (Chronic) HTN (hypertension) (Chronic) Herpes zoster (Chronic) Encounter for preventative adult health care examination (Chronic) Encounter for long-term (current) use of medications (Chronic) Arthritis of right knee (Chronic) Medical History Abnormality of gait Acute medial meniscus tear Adenocarcinoma of endometrium Adult onset diabetes mellitus with ketoacidosis Anemia Arthritis of right knee Back pain Benign neoplasm of ascending colon Carcinoma in situ of breast Carpal tunnel syndrome Cough due to KATLYN inhibitor Depression Encounter for long-term (current) use of medications Encounter for preventative adult health care examination Fatigue GERD (gastroesophageal reflux disease) Glaucoma Herpes zoster HTN (hypertension) Hx of infection (~1992) Right leg Hyperlipidemia Hyperplastic adenomatous polyp of stomach Hypothyroidism Incontinence without sensory awareness Intraductal carcinoma in situ of left breast Lymphedema of right arm Other sleep disturbances Parkinson's disease Peripheral neuropathy Physical exam PVD (peripheral vascular disease) Skin lesion Unspecified venous (peripheral) insufficiency Varicose veins of other specified sites Vitamin D deficiency Surgical History History of left knee replacement (~2011) History of lumpectomy of right breast (~2013) w/ Rt nipple nodule excision Hx of breast surgery (~2013) Stereotactic breast Bx Hx of carpal tunnel repair (~2009) Neuroplasty Median Nerve Hx of dilation and curettage (~02/21/19) Hx of hysterectomy with oophorectomy (~2007) Hx of mastectomy (~2013) w/ Lymphatic mapping and SLN Bx Family History Father , 80 Y/O CVA (cerebral vascular accident) Social History household members: family lives independently: No marital status: occupational status: retired and disabled additional history: Lives with daughter MEDS/ALLERGIES Home Medications and Allergies Home Medications Medication Instructions Recorded Confirmed Type brinzolamide 1 % eye 1 drp OPHTHALMIC BID ml 02/21/19 10/17/21 History drops,suspension (Azopt) carbidopa 25 mg-levodopa 100 mg 2 tab PO TID 02/21/19 10/17/21 History disintegrating tablet aspirin 81 mg tablet,delayed 81 mg PO QDAY tab 12/15/19 10/25/21 History release (Adult Low Dose Aspirin) bimatoprost 0.01 % eye drops 1 drp OPHTHALMIC HS 12/15/19 10/25/21 History brimonidine 0.2 % eye drops 1 drp OPHTHALMIC BID ml 12/15/19 10/17/21 History glucagon HCl 1 mg solution for 1 mg SUB-Q Q20M PRN 12/15/19 10/17/21 History injection (Glucagon (HCl) Emergency Kit) sodium phosphates 19 gram-7 118 ml NE QDAY PRN ml 12/15/19 10/17/21 History gram/118 mL enema (Fleet Enema) tramadol 50 mg tablet 50 mg PO .Q4-6H PRN #120 tab 05/24/20 10/17/21 Rx blood sugar diagnostic (Contour #100 each 05/02/21 10/17/21 Rx Next Test Strips) omeprazole 20 mg capsule,delayed See Rx Instructions .ROUTE 07/01/21 10/17/21 Rx release .COMPLEX #90 cap glipizide 10 mg tablet 10 mg PO BID #60 tab 09/05/21 10/17/21 Rx losartan 50 mg tablet See Rx Instructions .ROUTE 10/07/21 10/17/21 Rx .COMPLEX #45 tab entacapone 200 mg tablet 200 mg PO QHS tab 10/17/21 10/17/21 History escitalopram oxalate 20 mg tablet See Rx Instructions .ROUTE 10/17/21 History .COMPLEX tab pimavanserin 34 mg capsule 34 mg PO QDAY 10/17/21 10/17/21 History sodium chloride 1 gram tablet 1,000 mg PO BID PRN #60 tab 10/17/21 10/17/21 Rx spironolactone 25 1 tab PO QDAY tab 10/17/21 History mg-hydrochlorothiazide 25 mg tablet bupropion HCl 100 mg tablet,12 hr See Rx Instructions .ROUTE 10/22/21 Rx sustained-release .COMPLEX #90 tab levothyroxine 75 mcg tablet See Rx Instructions .ROUTE 10/22/21 Rx .COMPLEX #30 tab Allergies Allergy/AdvReac Type Severity Reaction Status Date / Time cephalexin Allergy Mild Rash Verified 10/25/21 21:55 [id number] Reductase AdvReac Intermediate Muscle Pain Verified 10/25/21 21:55 Inhibitor [Ldhcddt-[id number]-Krh Reductase Inhibitor] KATLYN Inhibitors AdvReac Mild Cough Verified 10/25/21 21:55 diazepam [From Valium] AdvReac Unknown Unknown Verified 10/25/21 21:55 lisinopril AdvReac Unknown Unknown Verified 10/25/21 21:55 Physical Examination Vital Signs Vital signs: Temp Pulse Resp BP Pulse Ox 98 F 93 H 20 107/63 95 10/25/21 20:00 10/25/21 20:00 10/25/21 20:00 10/25/21 20:00 10/25/21 20:00 General physical appearance General physical exam: well developed, well nourished and no distress Eyes Eye exam: PERRL and normal ocular movement ENT ENT exam: normal pinna, normal nares, normal mucosa, no hearing loss and no congestion Head Head exam IM: Present atraumatic and normocephalic Neck Neck exam: no masses, no bruits, trachea midline, no lymphadenopathy and no venous distension Cardiovascular Cardiovascular exam IM: Present normal rate and rhythm Respiratory Respiratory exam: normal expansion, normal respiratory effort, clear to percussion and clear to auscultation Abdomen Abdomen: Present soft, non tender and bowel sounds Hernia: Present none Genitourinary Genitourinary (Female): Present normal external genitalia Rectum Rectum: Present normal sphincter tone, no hemorrhoids, no tenderness, no masses and no bleeding Integumentary Integumentary: Present no rash, no growths and no abnormal pigmentation Neurologic Neurologic: Present normal coordination and normal sensation Musculoskeletal Musculoskeletal: Present normal gait and normal posture Psychiatric Psychiatric: Present oriented to time, oriented to person, oriented to place, speech is normal and memory intact Results Labs Result diagrams: 10/25/21 13:34 Labs: Abnormal lab results 10/25/21 10/25/21 10/25/21 Range/Units 13:34 13:34 13:37 Hct 47.3 H (34.1-44.9) % POC Hct 51.0 H (36-48) MPV 11.2 H (7.4-10.4) fL Lymph % (Auto) 13.4 L (15.5-49.0) % Lymph # (Auto) 1.15 L (1.50-4.80) K/mcL POC VBG pH (7.32-7.42) POC VBG pCO2 at Temp (41-51) POC Sodium 132 L (133-145) POC Chloride 93 L (96-108) POC Creatinine 1.6 H (0.6-1.2) POC Glucose 157 H (70-105) POC Venous Lactate (0.5-2) POC WB Ioniz Calcium 1.01 L (1.16-1.32) Total Bilirubin 1.1 H (0.1-1.0) mg/dL Direct Bilirubin 0.3 H (<0.3) mg/dL Alkaline Phosphatase 122 H (39-117) U/L Urine Appearance (Clear) Urine Glucose (UA) (Negative) mg/dL Urine Ketones (Negative) mg/dL Ur Leukocyte Esterase (Negative) /uL Urine WBC (0-4) /hpf Urine Bacteria (0) /hpf Hyaline Casts (0-2) /lph Urine Mucus (None) /hpf 10/25/21 10/25/21 Range/Units 14:10 14:34 Hct (34.1-44.9) % POC Hct (36-48) MPV (7.4-10.4) fL Lymph % (Auto) (15.5-49.0) % Lymph # (Auto) (1.50-4.80) K/mcL POC VBG pH 7.48 H (7.32-7.42) POC VBG pCO2 at Temp 33.2 L (41-51) POC Sodium (133-145) POC Chloride (96-108) POC Creatinine (0.6-1.2) POC Glucose (70-105) POC Venous Lactate 3.4 H (0.5-2) POC WB Ioniz Calcium (1.16-1.32) Total Bilirubin (0.1-1.0) mg/dL Direct Bilirubin (<0.3) mg/dL Alkaline Phosphatase (39-117) U/L Urine Appearance Hazy A (Clear) Urine Glucose (UA) 50 A (Negative) mg/dL Urine Ketones 20 A (Negative) mg/dL Ur Leukocyte Esterase 75 A (Negative) /uL Urine WBC 36 H (0-4) /hpf Urine Bacteria Few A (0) /hpf Hyaline Casts 3 H (0-2) /lph Urine Mucus Few A (None) /hpf Diabetes panel 10/25/21 Range/Units 13:34 AST 12 (<32) U/L ALT < 5 (<40) U/L Alkaline Phosphatase 122 H (39-117) U/L Total Protein 7.4 (5.9-8.4) gm/dL Albumin 3.9 (3.2-5.2) gm/dL Thyroid panel 10/25/21 Range/Units 13:34 TSH 3.03 (0.27-5.01) uIU/mL Calcium panel 10/25/21 Range/Units 13:34 Albumin 3.9 (3.2-5.2) gm/dL Pituitary panel 10/25/21 Range/Units 13:34 TSH 3.03 (0.27-5.01) uIU/mL Adrenal panel 10/25/21 Range/Units 13:34 Total Bilirubin 1.1 H (0.1-1.0) mg/dL AST 12 (<32) U/L ALT < 5 (<40) U/L Alkaline Phosphatase 122 H (39-117) U/L Total Protein 7.4 (5.9-8.4) gm/dL Albumin 3.9 (3.2-5.2) gm/dL All other labs normal. Imaging CT scan - abdomen: image reviewed A/P Assessment and plan (1) Acute UTI: Plan: T?his is a 76 y/o female who presents with 3 months c/o change in tase, change in feeling in her mouth with food, change in taste in food with gagging and inability to eat secondary to above. She denies dysphagia, epigastric pain at this time. She has a referral to GI. Rec: I do not feel EGD is indicated at this time due to her symptoms. Would recommend neurology evaluation as unger in taste can be secondary to Parkinsons. Also recommend review of medications to r/o changes 3 months ago that could be related to change in taste of food. Swallow evaluation with speech therapy to evaluate for gagging and swallow mechanism follow up with GI as outpatient. Status: Acute Time Spent With Patient Time: Total time spent is greater than 50% in coordination of care (as documented) at patient's floor/unit and/or counseling patient:
[2021-10-26 00:24] LABS: Estimated Average Glucose(eAG) 171 mg/dL; Hemoglobin A1C 7.6 % Hgb (4.0-6.0)
[2021-10-26] MEDS: 0.9 % SODIUM CHLORIDE 10 ML SYRINGE IV SCH ×3 (05:35→21:21)
[2021-10-26 06:27] LABS: Basophils # (Auto) 0.03 K/mcL (0.00-0.30); Basophils % (Auto) 0.6 % (0.0-2.0); Eosinophils # (Auto) 0.12 K/mcL (0.00-0.70); Eosinophils % (Auto) 2.2 % (0.0-7.0); Hematocrit 42.5 % (34.1-44.9); Lymphocytes # (Auto) 1.13 K/mcL (1.50-4.80); Lymphocytes % (Auto) 21.2 % (15.5-49.0); Mean Cell Volume 93.4 fL (80.0-100.0); Mean Corpuscular HGB Conc 32.9 g/dL (31.0-36.0); Mean Platelet Volume 11.1 fL (7.4-10.4); Monocytes % (Auto) 11.2 % (1.0-12.0); Neutrophils % (Auto) 64.8 % (38.0-78.0); Platelet Count 247 K/mcL (140-440); RBC 4.55 M/mcL (3.59-5.38); Red Cell Distribution Width 14.1 % (11.5-14.5); WBC 5.3 K/mcL (4.5-11.0)
[2021-10-26 06:56] LABS: ALT/SGPT < 5 U/L (<40); AST/SGOT 9 U/L (<32); Albumin 3.4 gm/dL (3.2-5.2); Albumin/Globulin Ratio 1.1 (1.0-2.3); Alkaline Phosphatase 100 U/L (39-117); Bilirubin,Total 0.7 mg/dL (0.1-1.0); Blood Urea Nitrogen 13 mg/dL (8-23); Calcium 8.8 mg/dL (8.6-10.4); Carbon Dioxide 25 mmol/L (22-30); Chloride 97 mmol/L (96-108); Glomerular Filtration Rate 34; Glucose 76 mg/dL (70-105)
[2021-10-26] MEDS: OMEPRAZOLE 20 MG CAPSULE PO SCH (07:04)
[2021-10-26] MEDS: LEVOTHYROXINE 75 MCG TABLET PO SCH (07:04)
[2021-10-26] MEDS: INSULIN LISPRO 1 UNIT/0.01 ML UNIT SQ SCH ×4 (07:05→21:19)
[2021-10-26] MEDS: METOPROLOL TARTRATE 25 MG TABLET PO SCH ×2 (09:36→21:18)
[2021-10-26] MEDS: DOCUSATE SODIUM 100 MG CAPSULE PO SCH ×2 (09:36→21:18)
[2021-10-26] MEDS: buPROPion 100 MG TAB.SR.12H PO SCH (09:36)
[2021-10-26] MEDS: CARBIDOPA/LEVODOPA 25/100 TABLET PO SCH ×3 (09:37→21:19)
[2021-10-26] MEDS: ASPIRIN 81 MG TAB.CHEW PO SCH (09:37)
[2021-10-26] MEDS: APIXABAN 5 MG TABLET PO SCH ×2 (09:37→21:18)
[2021-10-26] MEDS: ESCITALOPRAM 20 MG TABLET PO SCH (09:37)
[2021-10-26] MEDS: cefTRIAXone 1 GM VIAL IV SCH (09:48)
[2021-10-26] MEDS: BRIMONIDINE OPHTH DROPS 1 GTT BOTTLE 5ML OU SCH ×2 (10:00→21:20)
[2021-10-26] MEDS: BIMATOPROST 0.01% OU SCH (10:00)
[2021-10-26] MEDS: PIMAVANSERIN 34 MG PO SCH (10:01)
--- NOTE | 2021-10-26 11:06 | Internal Med Progress Note ---
SUBJECTIVE Subjective Patient information: Note initiated : 10/26/21 at 11:04 am Service Date, if different from initiated Date: [] Patient: Angelic Grande a 76 y/o F admitted on 10/25/21 for Weakness. Chief Complaint: [] Interval history: Ms. Grande is a 76 year old F history of Parkinson disease, essential hypertension, mixed dyslipidemia, type 2 diabetes mellitus, hypothyroidism, frequent UTI, atrial fibrillation, depression, chronic kidney disease, presenting with 3 months history of reported loss of the appetite, minimal oral intake, nausea and vomiting, change in taste of the food. She is complaining of 3-month history of reported loss of appetite, minimal oral intake, nausea vomiting, and change to taste of the food. She is also complaining of epigastric, constant, nonradiating, mild 3 out of 10 severity, burning sensati ons abdominal pain. She denies any fever chills or diaphoresis. She also is complaining of unquantified weight loss. She also reports a history of frequent UTI and she is reporting urinary symptoms such as dysuria. Due to the multitude of her complaints, her daughter bring her into the ER today for further evaluations. Vital signs at ED presentation significant for tachycardia and tachypnea with heart rate and rate of breathing in the 130s and mid 20s, respectively. The above improved and back to the normal after her 2 L of fluid bolus given in the ED. Labs significant for lack of leukocytosis with WBC 8.6. Initial serum lactic acid level 3.4. UA suggestive of the presence of urinary tract infections. CT whole body did not show any acute changes. 10/26: Tolerating some CC diet. Dr. Elizondo evaluated the patient and recs. AGAINST EGD. recs. outpatient GI follow up. Denies abdominal pain. c/o mild nausea, no vomiting. c/o general body weakness. Denies fever or chills. Denies dysuria. Pending PT OT SLT dietitian evaluation. Blood and urine cultures no growth to date, continue Rocephin for UTI. Constitutional Vitals: Vital Signs Temp Pulse Resp BP Pulse Ox 36.3 C 99 H 18 138/86 95 10/26/21 07:21 10/26/21 07:21 10/26/21 07:21 10/26/21 07:21 10/26/21 07:21 Period Temp Pulse Resp BP Sys/Davis Pulse Ox Last 24 Hr 36.3 C-36.8 C 61-144 14-28 73-161/33-116 91-99 Intake and Output 10/25/21 10/26/21 10/26/21 21:59 05:59 13:59 Intake Total 1999 150 Output Total 500 Balance 1999 Weight 113.398 kg Intake & Output: Intake & Output 10/25/21 10/26/21 10/26/21 21:59 05:59 13:59 Intake Total 1999 150 Output Total 500 Balance 1999 Weight 113.398 kg Intake: IV 1999 Sodium Chloride 0.9% 1,000 ml @ 2000 Wide Open IV BOLUS ONE Rx#: [id number] Oral 150 Output: Urine Catheter Amount 500 Other: Urine Appearance Uretheral (Chavis) Clear Urine Color Uretheral (Chavis) Bright Yellow General appearance: cooperative, no acute distress and severe distress Head Head exam: Present atraumatic and normal inspection Eye Eye exam: Present normal appearance ENT ENT exam: Present mucous membranes moist, normal exam and normal external ear exam Neck Neck exam: Present normal inspection Respiratory Respiratory exam: Present normal respiratory exam Cardiovascular Cardiovascular exam: Present irregular rhythm GI/Abdominal GI/Abdominal exam: Present normal bowel sounds Extremities Exam Extremities exam: Present full ROM Additional comments: Right > left extremities tremors Back Exam Back exam: Present normal inspection Neurological Exam Neurological exam: Present alert and oriented X3 Skin Skin exam: Present intact and warm OBJ DATA Labs CBC & Chem 7: 10/26/21 05:37 10/26/21 05:37 Labs: Abnormal Lab Results 10/26/21 10/26/21 10/25/21 05:37 05:37 19:02 Hct POC Hct MPV 11.1 H Lymph % (Auto) Lymph # (Auto) 1.13 L POC VBG pH POC VBG pCO2 at Temp POC Sodium POC Chloride Creatinine 1.5 H POC Creatinine POC Glucose Hemoglobin A1c 7.6 H POC Venous Lactate POC WB Ioniz Calcium Total Bilirubin Direct Bilirubin Alkaline Phosphatase Urine Appearance Urine Glucose (UA) Urine Ketones Ur Leukocyte Esterase Urine WBC Urine Bacteria Hyaline Casts Urine Mucus 10/25/21 10/25/21 10/25/21 14:34 14:10 13:37 Hct POC Hct 51.0 H MPV Lymph % (Auto) Lymph # (Auto) POC VBG pH 7.48 H POC VBG pCO2 at Temp 33.2 L POC Sodium 132 L POC Chloride 93 L Creatinine POC Creatinine 1.6 H POC Glucose 157 H Hemoglobin A1c POC Venous Lactate 3.4 H POC WB Ioniz Calcium 1.01 L Total Bilirubin Direct Bilirubin Alkaline Phosphatase Urine Appearance Hazy A Urine Glucose (UA) 50 A Urine Ketones 20 A Ur Leukocyte Esterase 75 A Urine WBC 36 H Urine Bacteria Few A Hyaline Casts 3 H Urine Mucus Few A 10/25/21 10/25/21 13:34 13:34 Hct 47.3 H POC Hct MPV 11.2 H Lymph % (Auto) 13.4 L Lymph # (Auto) 1.15 L POC VBG pH POC VBG pCO2 at Temp POC Sodium POC Chloride Creatinine POC Creatinine POC Glucose Hemoglobin A1c POC Venous Lactate POC WB Ioniz Calcium Total Bilirubin 1.1 H Direct Bilirubin 0.3 H Alkaline Phosphatase 122 H Urine Appearance Urine Glucose (UA) Urine Ketones Ur Leukocyte Esterase Urine WBC Urine Bacteria Hyaline Casts Urine Mucus Meds: Medications Acetaminophen (Acetaminophen 325 Mg Tablet) 650 mg PO Q6HP PRN; Protocol PRN Reason: Per Pain Protocol/Fever > 101 Albuterol/Ipratropium (Ipratropium/Albuterol 3 Ml Ampul.Neb) 3 ml NEB Q4HRT PRN PRN Reason: Wheezing Apixaban (Apixaban 5 Mg Tablet) 5 mg PO BID [facility] Last Admin: 10/26/21 09:37 Dose: 5 mg Documented by: Aspirin (Aspirin 81 Mg Tab.Chew) 81 mg PO DAILY [facility] Last Admin: 10/26/21 09:37 Dose: 81 mg Documented by: Baclofen (Baclofen 10 Mg Tablet) 10 mg PO DAILYP PRN PRN Reason: Muscle Spasm Bisacodyl (Bisacodyl 5 Mg Tablet) 10 mg PO QDAY PRN PRN Reason: Constipation Brimonidine Tartrate (Brimonidine Ophth Drops 1 Gtt Bottle 5ml) 1 gtt OU BID [facility] Last Admin: 10/26/21 10:00 Dose: Not Given Documented by: Bupropion HCl (Bupropion 100 Mg Tab.Sr.12h) 100 mg PO DAILY [facility] Last Admin: 10/26/21 09:36 Dose: 100 mg Documented by: Carbidopa/Levodopa (Carbidopa/Levodopa 25/100 Tablet) 2 tab PO TID [facility] Last Admin: 10/26/21 09:37 Dose: 2 tab Documented by: Ceftriaxone Sodium (Ceftriaxone 1 Gm Vial) 1 gm IV Q24H [facility] Last Admin: 10/26/21 09:48 Dose: 1 gm Documented by: Dextrose (Dextrose 50% 50 Ml Vial) 0 ml IV UD PRN PRN Reason: Per Sliding Scale Diagnostic Test (Pha) (Accu-Chek 1 Each Strip) 1 each FS [facility] Last Admin: 10/26/21 07:05 Dose: 1 each Documented by: Docusate Sodium (Docusate Sodium 100 Mg Capsule) 100 mg PO BID [facility] Last Admin: 10/26/21 09:36 Dose: 100 mg Documented by: Escitalopram Oxalate (Escitalopram 20 Mg Tablet) 20 mg PO DAILY [facility] Last Admin: 10/26/21 09:37 Dose: 20 mg Documented by: Glucose (Dextrose 31 Gm Oral.Susp) 15 gm PO PRN PRN PRN Reason: Hypoglycemia Insulin Human Lispro (Insulin Lispro 1 Unit/0.01 Ml Unit) 0 unit SQ [facility]; Protocol Last Admin: 10/26/21 07:05 Dose: Not Given Documented by: Levothyroxine Sodium (Levothyroxine 75 Mcg Tablet) 75 mcg PO [facility] Last Admin: 10/26/21 07:04 Dose: 75 mcg Documented by: Metoprolol Tartrate (Metoprolol Tartrate 25 Mg Tablet) 25 mg PO BID [facility] Last Admin: 10/26/21 09:36 Dose: 25 mg Documented by: Omeprazole (Omeprazole 20 Mg Capsule) 20 mg PO [facility] Last Admin: 10/26/21 07:04 Dose: 20 mg Documented by: Ondansetron HCl (Ondansetron 4 Mg/2 Ml Vial) 4 mg IV Q6HP PRN PRN Reason: Nausea And Vomiting Bimatoprost 0.01 % (Drops) 1 dose OU QDAY [facility] Last Admin: 10/26/21 10:00 Dose: Not Given Documented by: Entacapone 200 Mg (Tablet) 1 dose PO QHS [facility] Last Admin: 10/25/21 20:14 Dose: Not Given Documented by: Pimavanserin 34 Mg (Capsule) 1 dose PO QDAY [facility] Last Admin: 10/26/21 10:01 Dose: Not Given Documented by: Brinzolamide [Azopt] 1 % Drops, Suspension 1 dose OU BID [facility] Last Admin: 10/26/21 10:00 Dose: Not Given Documented by: Senna (Sennosides 1 Tablet) 2 tab PO HS [facility] Last Admin: 10/25/21 20:30 Dose: 2 tab Documented by: Sodium Biphosphate/Sodium Phosphate (Fleets Adult Enema) 1 dose MN DAILYP PRN PRN Reason: constipation Sodium Chloride (Sodium Chloride 1 Gm Tablet) 1 gm PO BIDP PRN PRN Reason: electrolyte replenishment Sodium Chloride (0.9 % Sodium Chloride 10 Ml Syringe) 10 ml IV Q8 [facility] Last Admin: 10/26/21 05:35 Dose: 10 ml Documented by: Tramadol HCl (Tramadol 50 Mg Tablet) 50 mg PO Q4-6HP PRN PRN Reason: Pain Zolpidem Tartrate (Zolpidem 5 Mg Tablet) 5 mg PO HSP PRN PRN Reason: Insomnia A/P Assessment and plan (1) Atrial fibrillation: Status: Acute Qualifiers: Atrial fibrillation type: unspecified Qualified Code(s): I48.91 - Unspecified atrial fibrillation (2) Diabetes 1.5, managed as type 2: Status: Acute (3) Hyponatremia: Status: Acute (4) UTI (urinary tract infection): Status: Acute (5) Dysphagia: Status: Acute (6) GERD (gastroesophageal reflux disease): Status: Chronic (7) Hypothyroidism: Status: Chronic Qualifiers: Hypothyroidism type: acquired Qualified Code(s): E03.9 - Hypothyroidism, unspecified (8) Hyperlipidemia: Status: Chronic Qualifiers: Hyperlipidemia type: mixed hyperlipidemia Qualified Code(s): E78.2 - Mixed hyperlipidemia (9) HTN (hypertension): Status: Chronic Qualifiers: Hypertension type: essential hypertension Qualified Code(s): I10 - Essential (primary) hypertension (10) Parkinson's disease: Status: Chronic Narrative A/P Narrative: Assessment and Plans: 1. UTI: Observation med surg s/p 2L NS bolus given in the ER, followed by saline lock Serial lactic acid 1.1 Procalcitonin 0.09 Blood culture, no growth to date Urine culture, no growth to date cbc w/ auto diff in the morning to trend WBC Tylenol PRN fever Rocephin 2. Dsyphagia: DDx: Parkinson disease complications, diabetic gastroparesis Consult Dr. Elizondo, recs. against EGD; recs. outpatient GI f/u Speech therapy consultation Dietitian referral CC diet 3. h/o Parkinson's disease: Physical therapy Occupational therapy Sinemet 4. Atrial fibrillation: [id number] VASc score of 6 Eliquis Continue beta naya for rate control 5. Essential HTN: Currently soft blood pressure Continue beta naya for rate control while holding other oral antihypertensives and diuretics 6. Mixed dyslipidemia: Continue statin therapy 7. h/o TIA: Continue Aspirin and statin therapy as secondary prevention 8. Chronic kidney disease stage III: Avoid nephrotoxic agents s/p 2L NS bolus given in the ER, followed by saline lock CMP in the morning to trend kidney functions 9. h/o depression: Continue bupropion and escitalopram 10. Hypothyroidism: Continue thyroid replacement therapy 11. T2DM: HgA1c 7.6 Hold oral hypoglycemics SSI AC HS Accu Chek AC HS Hypoglycemia protocol Diabetic diet 12: h/o GERD: Continue oral PPI from home regimen GI ppx: Continue oral PPI from home regimen DVT ppx: Eliquis Code status: Full Prognosis: stable Disposition: observation med surg; PT OT SLT Time Spent With Patient Time: Total time spent is greater than 50% in coordination of care (as documented) at patient's floor/unit and/or counseling patient: Total time spent with greater than 50% in coordination of care (as documented) at patient's floor/unit and/or counseling patient:: 25 - 35 minutes QUALITY VTE Deep Vein Thrombosis/Pulmonary Embolism Present on Admission: No
[2021-10-26] MEDS: SENNOSIDES 1 TABLET PO SCH (21:18)
[2021-10-26] MEDS: Entacapone 200 mg tablet PO SCH (21:21)
[2021-10-26] MEDS: BACLOFEN 10 MG TABLET PO PRN (21:56)
[2021-10-27] MEDS: 0.9 % SODIUM CHLORIDE 10 ML SYRINGE IV SCH ×3 (05:47→21:38)
[2021-10-27 06:39] LABS: Basophils # (Auto) 0.02 K/mcL (0.00-0.30); Basophils % (Auto) 0.3 % (0.0-2.0); Eosinophils # (Auto) 0.13 K/mcL (0.00-0.70); Eosinophils % (Auto) 2.2 % (0.0-7.0); Hematocrit 43.4 % (34.1-44.9); Hemoglobin 13.9 g/dL (11.2-15.7); Lymphocytes # (Auto) 1.18 K/mcL (1.50-4.80); Lymphocytes % (Auto) 19.8 % (15.5-49.0); Mean Cell Volume 94.3 fL (80.0-100.0); Mean Platelet Volume 11.3 fL (7.4-10.4); Monocytes # (Auto) 0.73 K/mcL (0.10-0.90); Monocytes % (Auto) 12.3 % (1.0-12.0); Neutrophils % (Auto) 65.4 % (38.0-78.0); Platelet Count 206 K/mcL (140-440)
[2021-10-27 07:03] LABS: ALT/SGPT < 5 U/L (<40); AST/SGOT 8 U/L (<32); Albumin 3.6 gm/dL (3.2-5.2); Albumin/Globulin Ratio 1.3 (1.0-2.3); Alkaline Phosphatase 99 U/L (39-117); Bilirubin,Total 0.9 mg/dL (0.1-1.0); Blood Urea Nitrogen 12 mg/dL (8-23); Calcium 8.8 mg/dL (8.6-10.4); Carbon Dioxide 27 mmol/L (22-30); Chloride 97 mmol/L (96-108); Globulin 2.8 gm/dL (2.2-3.7); Glomerular Filtration Rate 40; Glucose 102 mg/dL (70-105); Phosphorous 2.4 mg/dL (2.5-4.5)
[2021-10-27] MEDS: INSULIN LISPRO 1 UNIT/0.01 ML UNIT SQ SCH ×4 (07:22→21:38)
[2021-10-27] MEDS: LEVOTHYROXINE 75 MCG TABLET PO SCH (07:30)
[2021-10-27] MEDS: OMEPRAZOLE 20 MG CAPSULE PO SCH (07:30)
[2021-10-27] MEDS: METOPROLOL TARTRATE 25 MG TABLET PO SCH ×2 (08:11→21:30)
[2021-10-27] MEDS: buPROPion 100 MG TAB.SR.12H PO SCH (08:11)
[2021-10-27] MEDS: CARBIDOPA/LEVODOPA 25/100 TABLET PO SCH ×3 (08:11→21:28)
[2021-10-27] MEDS: DOCUSATE SODIUM 100 MG CAPSULE PO SCH ×2 (08:11→21:31)
[2021-10-27] MEDS: BIMATOPROST 0.01% OU SCH (08:12)
[2021-10-27] MEDS: ASPIRIN 81 MG TAB.CHEW PO SCH (08:12)
[2021-10-27] MEDS: ESCITALOPRAM 20 MG TABLET PO SCH (08:12)
[2021-10-27] MEDS: BRIMONIDINE OPHTH DROPS 1 GTT BOTTLE 5ML OU SCH ×2 (08:12→21:34)
[2021-10-27] MEDS: cefTRIAXone 1 GM VIAL IV SCH (08:12)
[2021-10-27] MEDS: APIXABAN 5 MG TABLET PO SCH ×2 (08:12→21:30)
[2021-10-27] MEDS: PIMAVANSERIN 34 MG PO SCH (08:13)
[2021-10-27] MEDS ORDERED: POTASSIUM CHLORIDE 20 MEQ in DEXTROSE 5% IN WATER 250 ML IV PRN (11:30)
--- NOTE | 2021-10-27 12:26 | Internal Med Progress Note ---
SUBJECTIVE Subjective Patient information: Note initiated : 10/27/21 at 12:21 pm Service Date, if different from initiated Date: [] Patient: Angelic Grande a 76 y/o F admitted on 10/25/21 for Weakness. Chief Complaint: [] Interval history: Ms. Grande is a 76 year old F history of Parkinson disease, essential hypertension, mixed dyslipidemia, type 2 diabetes mellitus, hypothyroidism, frequent UTI, atrial fibrillation, depression, chronic kidney disease, presenting with 3 months history of reported loss of the appetite, minimal oral intake, nausea and vomiting, change in taste of the food. She is complaining of 3-month history of reported loss of appetite, minimal oral intake, nausea vomiting, and change to taste of the food. She is also complaining of epigastric, constant, nonradiating, mild 3 out of 10 severity, burning sensati ons abdominal pain. She denies any fever chills or diaphoresis. She also is complaining of unquantified weight loss. She also reports a history of frequent UTI and she is reporting urinary symptoms such as dysuria. Due to the multitude of her complaints, her daughter bring her into the ER today for further evaluations. Vital signs at ED presentation significant for tachycardia and tachypnea with heart rate and rate of breathing in the 130s and mid 20s, respectively. The above improved and back to the normal after her 2 L of fluid bolus given in the ED. Labs significant for lack of leukocytosis with WBC 8.6. Initial serum lactic acid level 3.4. UA suggestive of the presence of urinary tract infections. CT whole body did not show any acute changes. 10/26: Tolerating some CC diet. Dr. Elizondo evaluated the patient and recs. AGAINST EGD. recs. outpatient GI follow up. Denies abdominal pain. c/o mild nausea, no vomiting. c/o general body weakness. Denies fever or chills. Denies dysuria. Pending PT OT SLT dietitian evaluation. Blood and urine cultures no growth to date, continue Rocephin for UTI. 10/27: Afebrile overnight. Blood and urine cultures no growth to date. WBC 6.0. Dietitian resc. dysphagia diet, patient is tolerating it. PT recs. SNF placement, patient agrees. Pending SNF placement. Continue Rocephin for UTI. Constitutional Vitals: Vital Signs Temp Pulse Resp BP Pulse Ox 36.6 C 85 18 119/78 95 10/27/21 11:20 10/27/21 11:20 10/27/21 11:20 10/27/21 11:20 10/27/21 07:52 Period Temp Pulse Resp BP Sys/Davis Pulse Ox Last 24 Hr 36.1 C-36.6 C 78-100 16-20 100-119/63-78 93-97 Intake and Output 10/26/21 10/27/21 10/27/21 21:59 05:59 13:59 Intake Total 480 50 Output Total 300 575 Balance 180 -525 Weight 137.892 kg Patient Weight 10/28/21 05:59 Weight 137.892 kg Intake & Output: Intake & Output 10/26/21 10/27/21 10/27/21 21:59 05:59 13:59 Intake Total 480 50 Output Total 300 575 Balance 180 -525 Weight 137.892 kg Intake: Oral 480 50 Output: Urine Catheter Amount 300 575 Other: Urine Appearance Cloudy Clear Uretheral ([place]avis) Clear Urine Color Dark Yellow Dark Maggie Uretheral ([place]) Dark Yellow General appearance: cooperative, no acute distress and severe distress Head Head exam: Present atraumatic and normal inspection Eye Eye exam: Present normal appearance ENT ENT exam: Present mucous membranes moist, normal exam and normal external ear exam Neck Neck exam: Present normal inspection Respiratory Respiratory exam: Present normal respiratory exam Cardiovascular Cardiovascular exam: Present irregular rhythm GI/Abdominal GI/Abdominal exam: Present normal bowel sounds Back Exam Back exam: Present normal inspection Neurological Exam Neurological exam: Present alert and oriented X3 Additional comments: Increased extremities tremors right > left Skin Skin exam: Present intact and warm OBJ DATA Labs CBC & Chem 7: 10/27/21 05:14 10/27/21 05:14 Labs: Abnormal Lab Results 10/27/21 10/27/21 10/26/21 05:14 05:14 05:37 Hct POC Hct MPV 11.3 H Lymph % (Auto) [place] % (Auto) 12.3 H Lymph # (Auto) 1.18 L POC VBG pH POC VBG pCO2 at Temp POC Sodium Potassium 3.2 L POC Chloride Creatinine 1.3 H 1.5 H POC Creatinine POC Glucose Hemoglobin A1c POC Venous Lactate POC WB Ioniz Calcium Phosphorus 2.4 L Total Bilirubin Direct Bilirubin Alkaline Phosphatase Urine Appearance Urine Glucose (UA) Urine Ketones Ur Leukocyte Esterase Urine WBC Urine Bacteria Hyaline Casts Urine Mucus 10/26/21 10/25/21 10/25/21 05:37 19:02 14:34 Hct POC Hct MPV 11.1 H Lymph % (Auto) [place] % (Auto) Lymph # (Auto) 1.13 L POC VBG pH POC VBG pCO2 at Temp POC Sodium Potassium POC Chloride Creatinine POC Creatinine POC Glucose Hemoglobin A1c 7.6 H POC Venous Lactate POC WB Ioniz Calcium Phosphorus Total Bilirubin Direct Bilirubin Alkaline Phosphatase Urine Appearance Hazy A Urine Glucose (UA) 50 A Urine Ketones 20 A Ur Leukocyte Esterase 75 A Urine WBC 36 H Urine Bacteria Few A Hyaline Casts 3 H Urine Mucus Few A 10/25/21 10/25/21 10/25/21 14:10 13:37 13:34 Hct 47.3 H POC Hct 51.0 H MPV 11.2 H Lymph % (Auto) 13.4 L [place] % (Auto) Lymph # (Auto) 1.15 L POC VBG pH 7.48 H POC VBG pCO2 at Temp 33.2 L POC Sodium 132 L Potassium POC Chloride 93 L Creatinine POC Creatinine 1.6 H POC Glucose 157 H Hemoglobin A1c POC Venous Lactate 3.4 H POC WB Ioniz Calcium 1.01 L Phosphorus Total Bilirubin Direct Bilirubin Alkaline Phosphatase Urine Appearance Urine Glucose (UA) Urine Ketones Ur Leukocyte Esterase Urine WBC Urine Bacteria Hyaline Casts Urine Mucus 10/25/21 13:34 Hct POC Hct MPV Lymph % (Auto) [place] % (Auto) Lymph # (Auto) POC VBG pH POC VBG pCO2 at Temp POC Sodium Potassium POC Chloride Creatinine POC Creatinine POC Glucose Hemoglobin A1c POC Venous Lactate POC WB Ioniz Calcium Phosphorus Total Bilirubin 1.1 H Direct Bilirubin 0.3 H Alkaline Phosphatase 122 H Urine Appearance Urine Glucose (UA) Urine Ketones Ur Leukocyte Esterase Urine WBC Urine Bacteria Hyaline Casts Urine Mucus Meds: Medications Acetaminophen (Acetaminophen 325 Mg Tablet) 650 mg PO Q6HP PRN; Protocol PRN Reason: Per Pain Protocol/Fever > 101 Albuterol/Ipratropium (Ipratropium/Albuterol 3 Ml Ampul.Neb) 3 ml NEB Q4HRT PRN PRN Reason: Wheezing Apixaban (Apixaban 5 Mg Tablet) 5 mg PO BID STEF Last Admin: 10/27/21 08:12 Dose: 5 mg Documented by: Aspirin (Aspirin 81 Mg Tab.Chew) 81 mg PO DAILY [facility] Last Admin: 10/27/21 08:12 Dose: 81 mg Documented by: Baclofen (Baclofen 10 Mg Tablet) 10 mg PO DAILYP PRN PRN Reason: Muscle Spasm Last Admin: 10/26/21 21:56 Dose: 10 mg Documented by: Bisacodyl (Bisacodyl 5 Mg Tablet) 10 mg PO QDAY PRN PRN Reason: Constipation Last Admin: 10/27/21 08:53 Dose: 10 mg Documented by: Brimonidine Tartrate (Brimonidine Ophth Drops 1 Gtt Bottle 5ml) 1 gtt OU BID [facility] Last Admin: 10/27/21 08:12 Dose: 1 drop Documented by: Bupropion HCl (Bupropion 100 Mg Tab.Sr.12h) 100 mg PO DAILY [facility] Last Admin: 10/27/21 08:11 Dose: 100 mg Documented by: Carbidopa/Levodopa (Carbidopa/Levodopa 25/100 Tablet) 2 tab PO TID [facility] Last Admin: 10/27/21 08:11 Dose: 2 tab Documented by: Ceftriaxone Sodium (Ceftriaxone 1 Gm Vial) 1 gm IV Q24H [facility] Last Admin: 10/27/21 08:12 Dose: 1 gm Documented by: Dextrose (Dextrose 50% 50 Ml Vial) 0 ml IV UD PRN PRN Reason: Per Sliding Scale Diagnostic Test (Pha) (Accu-Chek 1 Each Strip) 1 each FS [facility] Last Admin: 10/27/21 11:05 Dose: 1 each Documented by: Docusate Sodium (Docusate Sodium 100 Mg Capsule) 100 mg PO BID [facility] Last Admin: 10/27/21 08:11 Dose: 100 mg Documented by: Escitalopram Oxalate (Escitalopram 20 Mg Tablet) 20 mg PO DAILY [facility] Last Admin: 10/27/21 08:12 Dose: 20 mg Documented by: Glucose (Dextrose 31 Gm Oral.Susp) 15 gm PO PRN PRN PRN Reason: Hypoglycemia Potassium Chloride 20 meq/ (Dextrose) 260 mls @ 130 mls/hr IV UD PRN PRN Reason: hypokalemia Insulin Human Lispro (Insulin Lispro 1 Unit/0.01 Ml Unit) 0 unit SQ [facility]; Protocol Last Admin: 10/27/21 11:46 Dose: 2 units Documented by: Levothyroxine Sodium (Levothyroxine 75 Mcg Tablet) 75 mcg PO [facility] Last Admin: 10/27/21 07:30 Dose: 75 mcg Documented by: Losartan Potassium (Losartan 25 Mg Tablet) 25 mg PO QDAY [facility] Metoprolol Tartrate (Metoprolol Tartrate 25 Mg Tablet) 25 mg PO BID [facility] Last Admin: 10/27/21 08:11 Dose: 25 mg Documented by: Omeprazole (Omeprazole 20 Mg Capsule) 20 mg PO [facility] Last Admin: 10/27/21 07:30 Dose: 20 mg Documented by: Ondansetron HCl (Ondansetron 4 Mg/2 Ml Vial) 4 mg IV Q6HP PRN PRN Reason: Nausea And Vomiting Bimatoprost 0.01 % (Drops) 1 dose OU QDAY [facility] Last Admin: 10/27/21 08:12 Dose: 1 dose Documented by: Entacapone 200 Mg (Tablet) 1 dose PO QHS [facility] Last Admin: 10/26/21 21:21 Dose: 1 dose Documented by: Pimavanserin 34 Mg (Capsule) 1 dose PO QDAY [facility] Last Admin: 10/27/21 08:13 Dose: 1 dose Documented by: Brinzolamide [Azopt] 1 % Drops, Suspension 1 dose OU BID [facility] Last Admin: 10/27/21 08:12 Dose: 1 dose Documented by: Ongentys 50 Mg Cap 1 dose PO [facility] Senna (Sennosides 1 Tablet) 2 tab PO [facility] Last Admin: 10/26/21 21:18 Dose: 2 tab Documented by: Sodium Biphosphate/Sodium Phosphate (Fleets Adult Enema) 1 dose [place] DAILYP PRN PRN Reason: constipation Sodium Chloride (Sodium Chloride 1 Gm Tablet) 1 gm PO BIDP PRN PRN Reason: electrolyte replenishment Sodium Chloride (0.9 % Sodium Chloride 10 Ml Syringe) 10 ml IV Q8 [facility] Last Admin: 10/27/21 05:47 Dose: 10 ml Documented by: Tramadol HCl (Tramadol 50 Mg Tablet) 50 mg PO Q4-6HP PRN PRN Reason: Pain Zolpidem Tartrate (Zolpidem 5 Mg Tablet) 5 mg PO HSP PRN PRN Reason: Insomnia A/P Assessment and plan (1) Atrial fibrillation: Status: Acute Qualifiers: Atrial fibrillation type: unspecified Qualified Code(s): I48.91 - Unspecified atrial fibrillation (2) Diabetes 1.5, managed as type 2: Status: Acute (3) Hyponatremia: Status: Acute (4) UTI (urinary tract infection): Status: Acute (5) Dysphagia: Status: Acute (6) GERD (gastroesophageal reflux disease): Status: Chronic (7) Hypothyroidism: Status: Chronic Qualifiers: Hypothyroidism type: acquired Qualified Code(s): E03.9 - Hypothyroidism, unspecified (8) Hyperlipidemia: Status: Chronic Qualifiers: Hyperlipidemia type: mixed hyperlipidemia Qualified Code(s): E78.2 - Mixed hyperlipidemia (9) HTN (hypertension): Status: Chronic Qualifiers: Hypertension type: essential hypertension Qualified Code(s): I10 - Essential (primary) hypertension (10) Parkinson's disease: Status: Chronic Narrative A/P Narrative: Assessment and Plans: 1. UTI: Inpatient med surg s/p 2L NS bolus given in the ER, followed by saline lock Serial lactic acid 1.1 Procalcitonin 0.09 Blood culture, no growth to date Urine culture, no growth to date cbc w/ auto diff in the morning to trend WBC Tylenol PRN fever Rocephin 2. Dsyphagia: DDx: Parkinson disease complications, diabetic gastroparesis Consult Dr. Elizondo, recs. against EGD; recs. outpatient GI f/u Speech therapy consultation Dietitian recs dysphagia diet 3. h/o Parkinson's disease: Physical therapy-->recs. SNF placement Occupational therapy Sinemet 4. Atrial fibrillation: [id number] VASc score of 6 Eliquis Continue beta naya for rate control 5. Essential HTN: Currently soft blood pressure Continue beta naya for rate control while holding other oral antihypertensives and diuretics 6. Mixed dyslipidemia: Continue statin therapy 7. h/o TIA: Continue Aspirin and statin therapy as secondary prevention 8. Chronic kidney disease stage III: Avoid nephrotoxic agents s/p 2L NS bolus given in the ER, followed by saline lock CMP in the morning to trend kidney functions 9. h/o depression: Continue bupropion and escitalopram 10. Hypothyroidism: Continue thyroid replacement therapy 11. T2DM: HgA1c 7.6 Hold oral hypoglycemics SSI AC HS Accu Chek AC HS Hypoglycemia protocol Diabetic dysphagia diet 12: h/o GERD: Continue oral PPI from home regimen GI ppx: Continue oral PPI from home regimen DVT ppx: Eliquis Code status: Full Prognosis: stable Disposition: inpatient med surg; pending SNF placement Time Spent With Patient Time: Total time spent is greater than 50% in coordination of care (as documented) at patient's floor/unit and/or counseling patient: Total time spent with greater than 50% in coordination of care (as documented) at patient's floor/unit and/or counseling patient:: 25 - 35 minutes QUALITY VTE Deep Vein Thrombosis/Pulmonary Embolism Present on Admission: No
[2021-10-27] MEDS: ONGENTYS PO SCH (21:28)
[2021-10-27] MEDS: BACLOFEN 10 MG TABLET PO PRN (21:30)
[2021-10-27] MEDS: SENNOSIDES 1 TABLET PO SCH (21:31)
[2021-10-28] MEDS: traMADol 50 MG TABLET PO PRN ×2 (03:27→18:53)
[2021-10-28] MEDS: 0.9 % SODIUM CHLORIDE 10 ML SYRINGE IV SCH ×3 (05:56→21:13)
[2021-10-28 07:27] LABS: Basophils # (Auto) 0.04 K/mcL (0.00-0.30); Basophils % (Auto) 0.6 % (0.0-2.0); Eosinophils # (Auto) 0.08 K/mcL (0.00-0.70); Eosinophils % (Auto) 1.2 % (0.0-7.0); Hematocrit 41.3 % (34.1-44.9); Hemoglobin 13.5 g/dL (11.2-15.7); Lymphocytes # (Auto) 1.21 K/mcL (1.50-4.80); Lymphocytes % (Auto) 18.6 % (15.5-49.0); Mean Corpuscular HGB Conc 32.7 g/dL (31.0-36.0); Mean Platelet Volume 11.4 fL (7.4-10.4); Monocytes # (Auto) 0.75 K/mcL (0.10-0.90); Monocytes % (Auto) 11.5 % (1.0-12.0); Neutrophils % (Auto) 68.1 % (38.0-78.0); Platelet Count 239 K/mcL (140-440); RBC 4.44 M/mcL (3.59-5.38); Red Cell Distribution Width 13.7 % (11.5-14.5); WBC 6.5 K/mcL (4.5-11.0)
[2021-10-28] MEDS: LEVOTHYROXINE 75 MCG TABLET PO SCH (07:27)
[2021-10-28] MEDS: OMEPRAZOLE 20 MG CAPSULE PO SCH (07:27)
[2021-10-28] MEDS: INSULIN LISPRO 1 UNIT/0.01 ML UNIT SQ SCH ×4 (07:29→21:17)
[2021-10-28 08:06] LABS: ALT/SGPT < 5 U/L (<40); AST/SGOT 8 U/L (<32); Albumin 3.5 gm/dL (3.2-5.2); Albumin/Globulin Ratio 1.2 (1.0-2.3); Alkaline Phosphatase 103 U/L (39-117); Bilirubin,Total 0.8 mg/dL (0.1-1.0); Blood Urea Nitrogen 16 mg/dL (8-23); Calcium 8.9 mg/dL (8.6-10.4); Carbon Dioxide 25 mmol/L (22-30); Chloride 94 mmol/L (96-108); Glomerular Filtration Rate 44; Glucose 114 mg/dL (70-105)
[2021-10-28] MEDS: LOSARTAN 25 MG TABLET PO SCH (08:36)
[2021-10-28] MEDS: ESCITALOPRAM 20 MG TABLET PO SCH (08:36)
[2021-10-28] MEDS: ASPIRIN 81 MG TAB.CHEW PO SCH (08:36)
[2021-10-28] MEDS: METOPROLOL TARTRATE 25 MG TABLET PO SCH ×2 (08:36→21:12)
[2021-10-28] MEDS: CARBIDOPA/LEVODOPA 25/100 TABLET PO SCH ×3 (08:37→21:12)
[2021-10-28] MEDS: DOCUSATE SODIUM 100 MG CAPSULE PO SCH ×2 (08:37→21:12)
[2021-10-28] MEDS: APIXABAN 5 MG TABLET PO SCH ×2 (08:38→21:11)
[2021-10-28] MEDS: buPROPion 100 MG TAB.SR.12H PO SCH (08:38)
[2021-10-28] MEDS: BRIMONIDINE OPHTH DROPS 1 GTT BOTTLE 5ML OU SCH ×2 (08:39→21:34)
[2021-10-28] MEDS: PIMAVANSERIN 34 MG PO SCH (08:39)
[2021-10-28] MEDS: BIMATOPROST 0.01% OU SCH (08:40)
[2021-10-28] MEDS: cefTRIAXone 1 GM VIAL IV SCH (08:40)
[2021-10-28] MEDS: POLYETHYLENE GLYCOL 3350 17 GM PACKET PO PRN (09:41)
--- NOTE | 2021-10-28 12:58 | Internal Med Progress Note ---
SUBJECTIVE Subjective Patient information: Note initiated : 10/28/21 at 12:54 pm Service Date, if different from initiated Date: [] Patient: Angelic Grande a 76 y/o F admitted on 10/27/21 for Weakness. Chief Complaint: [] Interval history: Ms. Grande is a 76 year old F history of Parkinson disease, essential hypertension, mixed dyslipidemia, type 2 diabetes mellitus, hypothyroidism, frequent UTI, atrial fibrillation, depression, chronic kidney disease, presenting with 3 months history of reported loss of the appetite, minimal oral intake, nausea and vomiting, change in taste of the food. She is complaining of 3-month history of reported loss of appetite, minimal oral intake, nausea vomiting, and change to taste of the food. She is also complaining of epigastric, constant, nonradiating, mild 3 out of 10 severity, burning sensati ons abdominal pain. She denies any fever chills or diaphoresis. She also is complaining of unquantified weight loss. She also reports a history of frequent UTI and she is reporting urinary symptoms such as dysuria. Due to the multitude of her complaints, her daughter bring her into the ER today for further evaluations. Vital signs at ED presentation significant for tachycardia and tachypnea with heart rate and rate of breathing in the 130s and mid 20s, respectively. The above improved and back to the normal after her 2 L of fluid bolus given in the ED. Labs significant for lack of leukocytosis with WBC 8.6. Initial serum lactic acid level 3.4. UA suggestive of the presence of urinary tract infections. CT whole body did not show any acute changes. 10/26: Tolerating some CC diet. Dr. Elizondo evaluated the patient and recs. AGAINST EGD. recs. outpatient GI follow up. Denies abdominal pain. c/o mild nausea, no vomiting. c/o general body weakness. Denies fever or chills. Denies dysuria. Pending PT OT SLT dietitian evaluation. Blood and urine cultures no growth to date, continue Rocephin for UTI. 10/27: Afebrile overnight. Blood and urine cultures no growth to date. WBC 6.0. Dietitian resc. dysphagia diet, patient is tolerating it. PT recs. SNF placement, patient agrees. Pending SNF placement. Continue Rocephin for UTI. 4/18: Afebrile overnight. Urine culture grew coagulase negative staph. Blood culture no growth to date. WBC 6.5. Patient stated that she convinced her daughter that she could come home instead of going to the skilled nursing, we will have the staff to verify with the family before discharging the patient. We changed antibiotics from Rocephin to Ancef. Constitutional Vitals: Vital Signs Temp Pulse Resp BP Pulse Ox 36.5 C 94 H 20 116/66 94 10/28/21 08:00 10/28/21 08:00 10/28/21 08:00 10/28/21 08:00 10/28/21 08:00 Period Temp Pulse Resp BP Sys/Davis Pulse Ox Last 24 Hr 36.3 C-36.8 C 77-100 16-20 109-127/65-77 91-95 Intake and Output 10/27/21 10/28/21 10/28/21 21:59 05:59 13:59 Intake Total 1420 200 240 Output Total 450 450 Balance 970 -250 240 Weight 145.291 kg Intake & Output: Intake & Output 10/27/21 10/28/21 10/28/21 21:59 05:59 13:59 Intake Total 1420 200 240 Output Total 450 450 Balance 970 -250 240 Weight 145.291 kg Intake: IV 260 Potassium Chloride 20 Meq In 260 Dextrose 5% in Water 250 ml @ 130 mls/hr IV UD PRN Rx#: [id number] Oral 1160 200 240 Output: Urine Catheter Amount 300 Void Amount 150 450 Other: Meal Lunch Breakfast Percent of Meal Consumed 50% 50% Feeding Ability Assist with Tray Set Up Independent Stool Size Moderate Stool Color Brown Stool Consistency Ladonna # Bowel Movements 1 Head Head exam: Present atraumatic and normal inspection Eye Eye exam: Present normal appearance ENT ENT exam: Present mucous membranes moist, normal exam and normal external ear exam Neck Neck exam: Present normal inspection Respiratory Respiratory exam: Present normal respiratory exam Cardiovascular Cardiovascular exam: Present normal rate and rhythm GI/Abdominal GI/Abdominal exam: Present normal bowel sounds Back Exam Back exam: Present normal inspection Neurological Exam Neurological exam: Present alert and oriented X3 Skin Skin exam: Present intact and warm OBJ DATA Labs CBC & Chem 7: 10/28/21 05:26 10/28/21 05:26 Labs: Abnormal Lab Results 10/28/21 10/28/2122 05:26 05:26 05:14 Hct POC Hct MPV 11.4 H Lymph % (Auto) Davis % (Auto) Lymph # (Auto) 1.21 L POC VBG pH POC VBG pCO2 at Temp POC Sodium Sodium 130 L Potassium 3.2 L POC Chloride Chloride 94 L Creatinine 1.2 H 1.3 H POC Creatinine Glucose 114 H POC Glucose Hemoglobin A1c POC Venous Lactate POC WB Ioniz Calcium Phosphorus 2.0 L 2.4 L Total Bilirubin Direct Bilirubin Alkaline Phosphatase Urine Appearance Urine Glucose (UA) Urine Ketones Ur Leukocyte Esterase Urine WBC Urine Bacteria Hyaline Casts Urine Mucus 10/27/21 10/26/21 10/26/21 05:14 05:37 05:37 Hct POC Hct MPV 11.3 H 11.1 H Lymph % (Auto) Davis % (Auto) 12.3 H Lymph # (Auto) 1.18 L 1.13 L POC VBG pH POC VBG pCO2 at Temp POC Sodium Sodium Potassium POC Chloride Chloride Creatinine 1.5 H POC Creatinine Glucose POC Glucose Hemoglobin A1c POC Venous Lactate POC WB Ioniz Calcium Phosphorus Total Bilirubin Direct Bilirubin Alkaline Phosphatase Urine Appearance Urine Glucose (UA) Urine Ketones Ur Leukocyte Esterase Urine WBC Urine Bacteria Hyaline Casts Urine Mucus 10/25/21 10/25/21 10/25/21 19:02 14:34 14:10 Hct POC Hct MPV Lymph % (Auto) Davis % (Auto) Lymph # (Auto) POC VBG pH 7.48 H POC VBG pCO2 at Temp 33.2 L POC Sodium Sodium Potassium POC Chloride Chloride Creatinine POC Creatinine Glucose POC Glucose Hemoglobin A1c 7.6 H POC Venous Lactate 3.4 H POC WB Ioniz Calcium Phosphorus Total Bilirubin Direct Bilirubin Alkaline Phosphatase Urine Appearance Hazy A Urine Glucose (UA) 50 A Urine Ketones 20 A Ur Leukocyte Esterase 75 A Urine WBC 36 H Urine Bacteria Few A Hyaline Casts 3 H Urine Mucus Few A 10/25/21 10/25/21 10/25/21 13:37 13:34 13:34 Hct 47.3 H POC Hct 51.0 H MPV 11.2 H Lymph % (Auto) 13.4 L Davis % (Auto) Lymph # (Auto) 1.15 L POC VBG pH POC VBG pCO2 at Temp POC Sodium 132 L Sodium Potassium POC Chloride 93 L Chloride Creatinine POC Creatinine 1.6 H Glucose POC Glucose 157 H Hemoglobin A1c POC Venous Lactate POC WB Ioniz Calcium 1.01 L Phosphorus Total Bilirubin 1.1 H Direct Bilirubin 0.3 H Alkaline Phosphatase 122 H Urine Appearance Urine Glucose (UA) Urine Ketones Ur Leukocyte Esterase Urine WBC Urine Bacteria Hyaline Casts Urine Mucus Meds: Medications Acetaminophen (Acetaminophen 325 Mg Tablet) 650 mg PO Q6HP PRN; Protocol PRN Reason: Per Pain Protocol/Fever > 101 Albuterol/Ipratropium (Ipratropium/Albuterol 3 Ml Ampul.Neb) 3 ml NEB Q4HRT PRN PRN Reason: Wheezing Apixaban (Apixaban 5 Mg Tablet) 5 mg PO BID [facility] Last Admin: 10/28/21 08:38 Dose: 5 mg Documented by: Aspirin (Aspirin 81 Mg Tab.Chew) 81 mg PO DAILY [facility] Last Admin: 10/28/21 08:36 Dose: 81 mg Documented by: Baclofen (Baclofen 10 Mg Tablet) 10 mg PO DAILYP PRN PRN Reason: Muscle Spasm Last Admin: 10/27/21 21:30 Dose: 10 mg Documented by: Bisacodyl (Bisacodyl 5 Mg Tablet) 10 mg PO QDAY PRN PRN Reason: Constipation Last Admin: 10/27/21 08:53 Dose: 10 mg Documented by: Brimonidine Tartrate (Brimonidine Ophth Drops 1 Gtt Bottle 5ml) 1 gtt OU BID [facility] Last Admin: 10/28/21 08:39 Dose: 1 drop Documented by: Bupropion HCl (Bupropion 100 Mg Tab.Sr.12h) 100 mg PO DAILY [facility] Last Admin: 10/28/21 08:38 Dose: 100 mg Documented by: Carbidopa/Levodopa (Carbidopa/Levodopa 25/100 Tablet) 2 tab PO TID [facility] Last Admin: 10/28/21 08:37 Dose: 2 tab Documented by: Dextrose (Dextrose 50% 50 Ml Vial) 0 ml IV UD PRN PRN Reason: Per Sliding Scale Diagnostic Test (Pha) (Accu-Chek 1 Each Strip) 1 each FS ACHS [facility] Last Admin: 10/28/21 11:24 Dose: 1 each Documented by: Docusate Sodium (Docusate Sodium 100 Mg Capsule) 100 mg PO BID [facility] Last Admin: 10/28/21 08:37 Dose: 100 mg Documented by: Escitalopram Oxalate (Escitalopram 20 Mg Tablet) 20 mg PO DAILY [facility] Last Admin: 10/28/21 08:36 Dose: 20 mg Documented by: Glucose (Dextrose 31 Gm Oral.Susp) 15 gm PO PRN PRN PRN Reason: Hypoglycemia Potassium Chloride 20 meq/ (Dextrose) 260 mls @ 130 mls/hr IV UD PRN PRN Reason: hypokalemia Last Infusion: 10/27/21 14:30 Dose: Infused Documented by: Cefazolin Sodium 1 gm/ (Dextrose) 50 mls @ 100 mls/hr IV Q8H [facility] Insulin Human Lispro (Insulin Lispro 1 Unit/0.01 Ml Unit) 0 unit SQ [facility]; Protocol Last Admin: 10/28/21 11:25 Dose: Not Given Documented by: Levothyroxine Sodium (Levothyroxine 75 Mcg Tablet) [facility] Last Admin: 10/28/21 07:27 Dose: 75 mcg Documented by: Losartan Potassium (Losartan 25 Mg Tablet) 25 mg PO QDAY [facility] Last Admin: 10/28/21 08:36 Dose: 25 mg Documented by: Metoprolol Tartrate (Metoprolol Tartrate 25 Mg Tablet) 25 mg PO BID [facility] Last Admin: 10/28/21 08:36 Dose: 25 mg Documented by: Omeprazole (Omeprazole 20 Mg Capsule) [facility] Last Admin: 10/28/21 07:27 Dose: 20 mg Documented by: Ondansetron HCl (Ondansetron 4 Mg/2 Ml Vial) 4 mg IV Q6HP PRN PRN Reason: Nausea And Vomiting Bimatoprost 0.01 % (Drops) 1 dose OU QDAY [facility] Last Admin: 10/28/21 08:40 Dose: 1 dose Documented by: Pimavanserin 34 Mg (Capsule) 1 dose PO QDAY [facility] Last Admin: 10/28/21 08:39 Dose: 1 dose Documented by: Brinzolamide [Azopt] 1 % Drops, Suspension 1 dose OU BID [facility] Last Admin: 10/28/21 08:39 Dose: 1 dose Documented by: Ongentys 50 Mg Cap 1 dose PO HS [facility] Last Admin: 10/27/21 21:28 Dose: 1 dose Documented by: Polyethylene Glycol (Polyethylene Glycol 3350 17 Gm Packet) 17 gm PO DAILYP PRN PRN Reason: Constipation Last Admin: 10/28/21 09:41 Dose: 17 gm Documented by: Senna (Sennosides 1 Tablet) 2 tab PO HS [facility] Last Admin: 10/27/21 21:31 Dose: 2 tab Documented by: Sodium Biphosphate/Sodium Phosphate (Fleets Adult Enema) 1 dose AR DAILYP PRN PRN Reason: constipation Last Admin: 10/27/21 16:25 Dose: 1 dose Documented by: Sodium Chloride (Sodium Chloride 1 Gm Tablet) 1 gm PO BIDP PRN PRN Reason: electrolyte replenishment Sodium Chloride (0.9 % Sodium Chloride 10 Ml Syringe) 10 ml IV Q8 [facility] Last Admin: 10/28/21 05:56 Dose: 10 ml Documented by: Tramadol HCl (Tramadol 50 Mg Tablet) 50 mg PO Q4-6HP PRN PRN Reason: Pain Last Admin: 10/28/21 03:27 Dose: 50 mg Documented by: Zolpidem Tartrate (Zolpidem 5 Mg Tablet) 5 mg PO HSP PRN PRN Reason: Insomnia A/P Assessment and plan (1) Atrial fibrillation: Status: Acute Qualifiers: Atrial fibrillation type: unspecified Qualified Code(s): I48.91 - Unspecified atrial fibrillation (2) Diabetes 1.5, managed as type 2: Status: Acute (3) Hyponatremia: Status: Acute (4) UTI (urinary tract infection): Status: Acute (5) Dysphagia: Status: Acute (6) GERD (gastroesophageal reflux disease): Status: Chronic (7) Hypothyroidism: Status: Chronic Qualifiers: Hypothyroidism type: acquired Qualified Code(s): E03.9 - Hypothyroidism, unspecified (8) Hyperlipidemia: Status: Chronic Qualifiers: Hyperlipidemia type: mixed hyperlipidemia Qualified Code(s): E78.2 - Mixed hyperlipidemia (9) HTN (hypertension): Status: Chronic Qualifiers: Hypertension type: essential hypertension Qualified Code(s): I10 - Essential (primary) hypertension (10) Parkinson's disease: Status: Chronic Narrative A/P Narrative: Assessment and Plans: 1. UTI: Inpatient med surg s/p 2L NS bolus given in the ER, followed by saline lock Serial lactic acid 1.1 Procalcitonin 0.09 Blood culture, no growth to date Urine culture, Coagulase negative Staph cbc w/ auto diff in the morning to trend WBC Tylenol PRN fever Switch from Rocephin to Ancef 2. Dsyphagia: DDx: Parkinson disease complications, diabetic gastroparesis Consult Dr. Elizondo, recs. against EGD; recs. outpatient GI f/u Speech therapy consultation Dietitian recs dysphagia diet 3. h/o Parkinson's disease: Physical therapy-->recs. SNF placement Patient stated that she convinced her daughter that she could come home instead of going to the skilled nursing, we will have the staff to verify with the family before discharging the patient. Occupational therapy Sinemet 4. Atrial fibrillation: [id number] VASc score of 6 Eliquis Continue beta naya for rate control 5. Essential HTN: Currently soft blood pressure Continue beta naya for rate control while holding other oral antihypertensives and diuretics 6. Mixed dyslipidemia: Continue statin therapy 7. h/o TIA: Continue Aspirin and statin therapy as secondary prevention 8. Chronic kidney disease stage III: Avoid nephrotoxic agents s/p 2L NS bolus given in the ER, followed by saline lock CMP in the morning to trend kidney functions 9. h/o depression: Continue bupropion and escitalopram 10. Hypothyroidism: Continue thyroid replacement therapy 11. T2DM: HgA1c 7.6 Hold oral hypoglycemics SSI AC HS Accu Chek AC HS Hypoglycemia protocol Diabetic dysphagia diet 12: h/o GERD: Continue oral PPI from home regimen GI ppx: Continue oral PPI from home regimen DVT ppx: Eliquis Code status: Full Prognosis: stable Disposition: inpatient med surg; pending SNF placement; Patient stated that she convinced her daughter that she could come home instead of going to the skilled nursing, we will have the staff to verify with the family before discharging the patient. Time Spent With Patient Time: Total time spent is greater than 50% in coordination of care (as documented) at patient's floor/unit and/or counseling patient: Total time spent with greater than 50% in coordination of care (as documented) at patient's floor/unit and/or counseling patient:: 25 - 35 minutes QUALITY VTE Deep Vein Thrombosis/Pulmonary Embolism Present on Admission: No
[2021-10-28] MEDS ORDERED: NITROFURANTOIN SR 100 MG CAPSULE PO SCH (13:00)
[2021-10-28] MEDS ORDERED: ceFAZolin 1 GM in DEXTROSE 5% IN WATER 50 ML IV SCH (14:00)
[2021-10-28] MEDS: NITROFURANTOIN SR 100 MG CAPSULE PO SCH (21:10)
[2021-10-28] MEDS: BACLOFEN 10 MG TABLET PO PRN (21:10)
[2021-10-28] MEDS: ONGENTYS PO SCH (21:10)
[2021-10-28] MEDS: SENNOSIDES 1 TABLET PO SCH (21:11)
[2021-10-29] MEDS: INSULIN LISPRO 1 UNIT/0.01 ML UNIT SQ SCH ×4 (07:09→21:19)
[2021-10-29] MEDS: 0.9 % SODIUM CHLORIDE 10 ML SYRINGE IV SCH ×3 (07:09→21:10)
[2021-10-29] MEDS: LEVOTHYROXINE 75 MCG TABLET PO SCH (07:13)
[2021-10-29] MEDS: OMEPRAZOLE 20 MG CAPSULE PO SCH (07:13)
[2021-10-29 08:04] LABS: Basophils # (Auto) 0.04 K/mcL (0.00-0.30); Basophils % (Auto) 0.8 % (0.0-2.0); Hemoglobin 13.7 g/dL (11.2-15.7); Lymphocytes # (Auto) 1.32 K/mcL (1.50-4.80); Lymphocytes % (Auto) 26.5 % (15.5-49.0); Mean Cell Volume 98.7 fL (80.0-100.0); Mean Corpuscular HGB Conc 30.4 g/dL (31.0-36.0); Mean Platelet Volume 11.1 fL (7.4-10.4); Monocytes # (Auto) 0.59 K/mcL (0.10-0.90); Monocytes % (Auto) 11.8 % (1.0-12.0); Neutrophils % (Auto) 58.9 % (38.0-78.0); Platelet Count 190 K/mcL (140-440); RBC 4.56 M/mcL (3.59-5.38); Red Cell Distribution Width 13.8 % (11.5-14.5)
[2021-10-29 08:36] LABS: ALT/SGPT < 5 U/L (<40); AST/SGOT 7 U/L (<32); Albumin 3.4 gm/dL (3.2-5.2); Alkaline Phosphatase 103 U/L (39-117); Bilirubin,Total 0.8 mg/dL (0.1-1.0); Blood Urea Nitrogen 14 mg/dL (8-23); Calcium 9.2 mg/dL (8.6-10.4); Carbon Dioxide 21 mmol/L (22-30); Chloride 93 mmol/L (96-108); Globulin 3.3 gm/dL (2.2-3.7); Glomerular Filtration Rate 49; Glucose 114 mg/dL (70-105); Phosphorous 2.1 mg/dL (2.5-4.5)
[2021-10-29] MEDS: CARBIDOPA/LEVODOPA 25/100 TABLET PO SCH ×3 (08:51→21:09)
[2021-10-29] MEDS: ASPIRIN 81 MG TAB.CHEW PO SCH (08:51)
[2021-10-29] MEDS: ESCITALOPRAM 20 MG TABLET PO SCH (08:51)
[2021-10-29] MEDS: BRIMONIDINE OPHTH DROPS 1 GTT BOTTLE 5ML OU SCH ×2 (08:51→21:11)
[2021-10-29] MEDS: APIXABAN 5 MG TABLET PO SCH ×2 (08:52→21:09)
[2021-10-29] MEDS: NITROFURANTOIN SR 100 MG CAPSULE PO SCH ×2 (08:52→21:09)
[2021-10-29] MEDS: LOSARTAN 25 MG TABLET PO SCH (08:52)
[2021-10-29] MEDS: METOPROLOL TARTRATE 25 MG TABLET PO SCH ×2 (08:52→21:09)
[2021-10-29] MEDS: DOCUSATE SODIUM 100 MG CAPSULE PO SCH ×2 (08:52→21:09)
[2021-10-29] MEDS: buPROPion 100 MG TAB.SR.12H PO SCH (08:52)
[2021-10-29] MEDS: BIMATOPROST 0.01% OU SCH (08:52)
[2021-10-29] MEDS: PIMAVANSERIN 34 MG PO SCH (08:53)
--- NOTE | 2021-10-29 12:49 | Internal Med Progress Note ---
SUBJECTIVE Subjective Patient information: Note initiated : 10/29/21 at 12:45 pm Service Date, if different from initiated Date: [] Patient: Angelic Grande a 76 y/o F admitted on 10/27/21 for Weakness. Chief Complaint: [] Interval history: Ms. Grande is a 76 year old F history of Parkinson disease, essential hypertension, mixed dyslipidemia, type 2 diabetes mellitus, hypothyroidism, frequent UTI, atrial fibrillation, depression, chronic kidney disease, presenting with 3 months history of reported loss of the appetite, minimal oral intake, nausea and vomiting, change in taste of the food. She is complaining of 3-month history of reported loss of appetite, minimal oral intake, nausea vomiting, and change to taste of the food. She is also complaining of epigastric, constant, nonradiating, mild 3 out of 10 severity, burning sensati ons abdominal pain. She denies any fever chills or diaphoresis. She also is complaining of unquantified weight loss. She also reports a history of frequent UTI and she is reporting urinary symptoms such as dysuria. Due to the multitude of her complaints, her daughter bring her into the ER today for further evaluations. Vital signs at ED presentation significant for tachycardia and tachypnea with heart rate and rate of breathing in the 130s and mid 20s, respectively. The above improved and back to the normal after her 2 L of fluid bolus given in the ED. Labs significant for lack of leukocytosis with WBC 8.6. Initial serum lactic acid level 3.4. UA suggestive of the presence of urinary tract infections. CT whole body did not show any acute changes. 10/26: Tolerating some CC diet. Dr. Elizondo evaluated the patient and recs. AGAINST EGD. recs. outpatient GI follow up. Denies abdominal pain. c/o mild nausea, no vomiting. c/o general body weakness. Denies fever or chills. Denies dysuria. Pending PT OT SLT dietitian evaluation. Blood and urine cultures no growth to date, continue Rocephin for UTI. 10/27: Afebrile overnight. Blood and urine cultures no growth to date. WBC 6.0. Dietitian resc. dysphagia diet, patient is tolerating it. PT recs. SNF placement, patient agrees. Pending SNF placement. Continue Rocephin for UTI. 4/18: Afebrile overnight. Urine culture grew coagulase negative staph. Blood culture no growth to date. WBC 6.5. Patient stated that she convinced her daughter that she could come home instead of going to the group home, we will have the staff to verify with the family before discharging the patient. We changed antibiotics from Rocephin to Ancef. 10/29: Afebrile overnight. WBC 5.0. Urine culture grew coagulase negative staph. Blood culture no growth to date. c/o chills. c/o dysuria. Poor appetite. Did not have much breakfast. Continue Ancef for UTI. Pending SNF placement. Constitutional Vitals: Vital Signs Temp Pulse Resp BP Pulse Ox 36.8 C 94 H 22 129/76 94 10/29/21 08:00 10/29/21 08:00 10/29/21 08:00 10/29/21 08:00 10/29/21 08:00 Period Temp Pulse Resp BP Sys/Davis Pulse Ox Last 24 Hr 36.2 C-36.8 C 85-103 - 110-139/66-94 94-98 Intake and Output 10/28/21 10/29/21 10/29/21 21:59 05:59 13:59 Intake Total 500 575 Output Total 250 Balance 250 575 Weight 141.203 kg Intake & Output: Intake & Output 10/28/21 10/29/21 10/29/21 21:59 05:59 13:59 Intake Total 500 575 Output Total 250 Balance 250 575 Weight 141.203 kg Intake: Oral 500 575 Output: Void Amount 250 Other: Meal Lunch Breakfast Percent of Meal Consumed 50% 10 Feeding Ability Independent Independent Urine Color Bright Yellow # Voids 2 General appearance: cooperative and morbidly obese Head Head exam: Present atraumatic and normal inspection Eye Eye exam: Present normal appearance ENT ENT exam: Present mucous membranes moist, normal exam and normal external ear exam Neck Neck exam: Present normal inspection Respiratory Respiratory exam: Present normal respiratory exam Cardiovascular Cardiovascular exam: Present irregular rhythm GI/Abdominal GI/Abdominal exam: Present normal bowel sounds Back Exam Back exam: Present normal inspection Neurological Exam Neurological exam: Present alert and oriented X3 Skin Skin exam: Present intact and warm OBJ DATA Labs CBC & Chem 7: 10/29/21 06:45 10/29/21 06:45 Labs: Abnormal Lab Results 10/29/21 10/29/21 10/28/21 06:45 06:45 05:26 Hct 45.0 H MCHC 30.4 L MPV 11.1 H Beauregard % (Auto) Lymph # (Auto) 1.32 L Sodium 129 L 130 L Potassium Chloride 93 L 94 L Carbon Dioxide 21 L Creatinine 1.2 H Glucose 114 H 114 H Phosphorus 2.1 L 2.0 L 10/28/21 10/27/21 10/27/21 05:26 05:14 05:14 Hct MCHC MPV 11.4 H 11.3 H Beauregard % (Auto) 12.3 H Lymph # (Auto) 1.21 L 1.18 L Sodium Potassium 3.2 L Chloride Carbon Dioxide Creatinine 1.3 H Glucose Phosphorus 2.4 L Meds: Medications Acetaminophen (Acetaminophen 325 Mg Tablet) 650 mg PO Q6HP PRN; Protocol PRN Reason: Per Pain Protocol/Fever > 101 Albuterol/Ipratropium (Ipratropium/Albuterol 3 Ml Ampul.Neb) 3 ml NEB Q4HRT PRN PRN Reason: Wheezing Apixaban (Apixaban 5 Mg Tablet) 5 mg PO BID [facility] Last Admin: 10/29/21 08:52 Dose: 5 mg Documented by: Aspirin (Aspirin 81 Mg Tab.Chew) 81 mg PO DAILY [facility] [place] Last Admin: 10/29/21 08:51 Dose: 81 mg Documented by: Baclofen (Baclofen 10 Mg Tablet) 10 mg PO DAILYP PRN PRN Reason: Muscle Spasm Last Admin: 10/28/21 21:10 Dose: 10 mg Documented by: Bisacodyl (Bisacodyl 5 Mg Tablet) 10 mg PO QDAY PRN PRN Reason: Constipation Last Admin: 10/27/21 08:53 Dose: 10 mg Documented by: Brimonidine Tartrate (Brimonidine Ophth Drops 1 Gtt Bottle 5ml) 1 gtt OU BID [facility] [place] Last Admin: 10/29/21 08:51 Dose: 1 drop Documented by: Bupropion HCl (Bupropion 100 Mg Tab.Sr.12h) 100 mg PO DAILY [facility] [place] Last Admin: 10/29/21 08:52 Dose: 100 mg Documented by: Carbidopa/Levodopa (Carbidopa/Levodopa 25/100 Tablet) 2 tab PO TID [facility] [place] Last Admin: 10/29/21 08:51 Dose: 2 tab Documented by: Dextrose (Dextrose 50% 50 Ml Vial) 0 ml IV UD PRN PRN Reason: Per Sliding Scale Diagnostic Test (Pha) (Accu-Chek 1 Each Strip) 1 each FS [facility] Last Admin: 10/29/21 11:26 Dose: 1 each Documented by: Docusate Sodium (Docusate Sodium 100 Mg Capsule) 100 mg PO BID [facility] [place] Last Admin: 10/29/21 08:52 Dose: 100 mg Documented by: Escitalopram Oxalate (Escitalopram 20 Mg Tablet) 20 mg PO DAILY [facility] [place] Last Admin: 10/29/21 08:51 Dose: 20 mg Documented by: Glucose (Dextrose 31 Gm Oral.Susp) 15 gm PO PRN PRN PRN Reason: Hypoglycemia Potassium Chloride 20 meq/ (Dextrose) 260 mls @ 130 mls/hr IV UD PRN PRN Reason: hypokalemia Last Infusion: 10/27/21 14:30 Dose: Infused Documented by: Insulin Human Lispro (Insulin Lispro 1 Unit/0.01 Ml Unit) 0 unit SQ [facility]; Protocol Last Admin: 10/29/21 11:26 Dose: Not Given Documented by: Levothyroxine Sodium (Levothyroxine 75 Mcg Tablet) 75 mcg PO [facility] Last Admin: 10/29/21 07:13 Dose: 75 mcg Documented by: Losartan Potassium (Losartan 25 Mg Tablet) 25 mg PO QDAY [facility] Last Admin: 10/29/21 08:52 Dose: 25 mg Documented by: Metoprolol Tartrate (Metoprolol Tartrate 25 Mg Tablet) 25 mg PO BID [facility] Last Admin: 10/29/21 08:52 Dose: 25 mg Documented by: Nitrofurantoin Macrocrystals (Nitrofurantoin Sr 100 Mg Capsule) 100 mg PO BID [facility] Last Admin: 10/29/21 08:52 Dose: 100 mg Documented by: Omeprazole (Omeprazole 20 Mg Capsule) 20 mg PO [facility] Last Admin: 10/29/21 07:13 Dose: 20 mg Documented by: Ondansetron HCl (Ondansetron 4 Mg/2 Ml Vial) 4 mg IV Q6HP PRN PRN Reason: Nausea And Vomiting Bimatoprost 0.01 % (Drops) 1 dose OU QDAY [facility] [place] Last Admin: 10/29/21 08:52 Dose: 1 dose Documented by: Pimavanserin 34 Mg (Capsule) 1 dose PO QDAY [facility] [place] Last Admin: 10/29/21 08:53 Dose: 1 dose Documented by: Brinzolamide [Azopt] 1 % Drops, Suspension 1 dose OU BID [facility] Last Admin: 10/29/21 08:51 Dose: 1 dose Documented by: Ongentys 50 Mg Cap 1 dose PO [facility] Last Admin: 10/28/21 21:10 Dose: 1 dose Documented by: Polyethylene Glycol (Polyethylene Glycol 3350 17 Gm Packet) 17 gm PO DAILYP PRN PRN Reason: Constipation Last Admin: 10/28/21 09:41 Dose: 17 gm Documented by: Senna (Sennosides 1 Tablet) 2 tab PO [facility] Last Admin: 10/28/21 21:11 Dose: 2 tab Documented by: Sodium Biphosphate/Sodium Phosphate (Fleets Adult Enema) 1 dose ME DAILYP PRN PRN Reason: constipation Last Admin: 10/27/21 16:25 Dose: 1 dose Documented by: Sodium Chloride (Sodium Chloride 1 Gm Tablet) 1 gm PO BIDP PRN PRN Reason: electrolyte replenishment Sodium Chloride (0.9 % Sodium Chloride 10 Ml Syringe) 10 ml IV Q8 [facility] Last Admin: 10/29/21 07:09 Dose: 10 ml Documented by: Tramadol HCl (Tramadol 50 Mg Tablet) 50 mg PO Q4-6HP PRN PRN Reason: Pain Last Admin: 10/28/21 18:53 Dose: 50 mg Documented by: Zolpidem Tartrate (Zolpidem 5 Mg Tablet) 5 mg PO HSP PRN PRN Reason: Insomnia A/P Assessment and plan (1) Atrial fibrillation: Status: Acute Qualifiers: Atrial fibrillation type: unspecified Qualified Code(s): I48.91 - Unspecified atrial fibrillation (2) Diabetes 1.5, managed as type 2: Status: Acute (3) Hyponatremia: Status: Acute (4) UTI (urinary tract infection): Status: Acute (5) Dysphagia: Status: Acute (6) GERD (gastroesophageal reflux disease): Status: Chronic (7) Hypothyroidism: Status: Chronic Qualifiers: Hypothyroidism type: acquired Qualified Code(s): E03.9 - Hypothyroidism, unspecified (8) Hyperlipidemia: Status: Chronic Qualifiers: Hyperlipidemia type: mixed hyperlipidemia Qualified Code(s): E78.2 - Mixed hyperlipidemia (9) HTN (hypertension): Status: Chronic Qualifiers: Hypertension type: essential hypertension Qualified Code(s): I10 - Essential (primary) hypertension (10) Parkinson's disease: Status: Chronic Narrative A/P Narrative: Assessment and Plans: 1. UTI: Inpatient med surg s/p 2L NS bolus given in the ER, followed by saline lock Serial lactic acid 1.1 Procalcitonin 0.09 Blood culture, no growth to date Urine culture, Coagulase negative Staph cbc w/ auto diff in the morning to trend WBC Tylenol PRN fever Continue Ancef 2. Dsyphagia: DDx: Parkinson disease complications, diabetic gastroparesis Consult Dr. Elizondo, recs. against EGD; recs. outpatient GI f/u Speech therapy consultation Dietitian recs dysphagia diet 3. h/o Parkinson's disease: Physical therapy-->recs. SNF placement, pending Occupational therapy Sinemet 4. Atrial fibrillation: [id number] VASc score of 6 Eliquis Continue beta naya for rate control 5. Essential HTN: Currently soft blood pressure Continue beta naya for rate control while holding other oral antihypertensives and diuretics 6. Mixed dyslipidemia: Continue statin therapy 7. h/o TIA: Continue Aspirin and statin therapy as secondary prevention 8. Chronic kidney disease stage III: Avoid nephrotoxic agents s/p 2L NS bolus given in the ER, followed by saline lock CMP in the morning to trend kidney functions 9. h/o depression: Continue bupropion and escitalopram 10. Hypothyroidism: Continue thyroid replacement therapy 11. T2DM: HgA1c 7.6 Hold oral hypoglycemics SSI AC HS Accu Chek AC HS Hypoglycemia protocol Diabetic dysphagia diet 12: h/o GERD: Continue oral PPI from home regimen GI ppx: Continue oral PPI from home regimen DVT ppx: Eliquis Code status: Full Prognosis: stable Disposition: inpatient med surg; pending SNF placement Time Spent With Patient Time: Total time spent is greater than 50% in coordination of care (as documented) at patient's floor/unit and/or counseling patient: Total time spent with greater than 50% in coordination of care (as documented) at patient's floor/unit and/or counseling patient:: 25 - 35 minutes QUALITY VTE Deep Vein Thrombosis/Pulmonary Embolism Present on Admission: No
[2021-10-29] MEDS: SENNOSIDES 1 TABLET PO SCH (21:08)
[2021-10-29] MEDS: ONGENTYS PO SCH (21:08)
[2021-10-30] MEDS: INSULIN LISPRO 1 UNIT/0.01 ML UNIT SQ SCH ×4 (06:56→21:38)
[2021-10-30] MEDS: 0.9 % SODIUM CHLORIDE 10 ML SYRINGE IV SCH ×3 (06:56→21:39)
[2021-10-30 07:09] LABS: Basophils # (Auto) 0.05 K/mcL (0.00-0.30); Basophils % (Auto) 0.9 % (0.0-2.0); Eosinophils % (Auto) 1.7 % (0.0-7.0); Hematocrit 42.1 % (34.1-44.9); Hemoglobin 13.7 g/dL (11.2-15.7); Lymphocytes # (Auto) 1.61 K/mcL (1.50-4.80); Lymphocytes % (Auto) 27.5 % (15.5-49.0); Mean Cell Volume 94.4 fL (80.0-100.0); Mean Corpuscular HGB Conc 32.5 g/dL (31.0-36.0); Mean Platelet Volume 11.3 fL (7.4-10.4); Monocytes # (Auto) 0.81 K/mcL (0.10-0.90); Monocytes % (Auto) 13.8 % (1.0-12.0); Neutrophils % (Auto) 56.1 % (38.0-78.0); Platelet Count 218 K/mcL (140-440); RBC 4.46 M/mcL (3.59-5.38); Red Cell Distribution Width 13.6 % (11.5-14.5); WBC 5.9 K/mcL (4.5-11.0)
[2021-10-30] MEDS: OMEPRAZOLE 20 MG CAPSULE PO SCH (07:39)
[2021-10-30] MEDS: LEVOTHYROXINE 75 MCG TABLET PO SCH (07:40)
[2021-10-30 08:13] LABS: ALT/SGPT < 5 U/L (<40); AST/SGOT 8 U/L (<32); Albumin 3.3 gm/dL (3.2-5.2); Albumin/Globulin Ratio 1.1 (1.0-2.3); Alkaline Phosphatase 100 U/L (39-117); Bilirubin,Total 0.8 mg/dL (0.1-1.0); Blood Urea Nitrogen 16 mg/dL (8-23); Calcium 9.2 mg/dL (8.6-10.4); Carbon Dioxide 26 mmol/L (22-30); Chloride 95 mmol/L (96-108); Globulin 3.1 gm/dL (2.2-3.7); Glomerular Filtration Rate 44; Glucose 112 mg/dL (70-105); Phosphorous 2.8 mg/dL (2.5-4.5)
[2021-10-30] MEDS: NITROFURANTOIN SR 100 MG CAPSULE PO SCH ×2 (09:02→21:37)
[2021-10-30] MEDS: PIMAVANSERIN 34 MG PO SCH (09:02)
[2021-10-30] MEDS: DOCUSATE SODIUM 100 MG CAPSULE PO SCH ×2 (09:02→21:38)
[2021-10-30] MEDS: LOSARTAN 25 MG TABLET PO SCH (09:02)
[2021-10-30] MEDS: APIXABAN 5 MG TABLET PO SCH ×2 (09:02→21:37)
[2021-10-30] MEDS: ESCITALOPRAM 20 MG TABLET PO SCH (09:02)
[2021-10-30] MEDS: ASPIRIN 81 MG TAB.CHEW PO SCH (09:02)
[2021-10-30] MEDS: METOPROLOL TARTRATE 25 MG TABLET PO SCH ×2 (09:02→21:37)
[2021-10-30] MEDS: BIMATOPROST 0.01% OU SCH (09:02)
[2021-10-30] MEDS: CARBIDOPA/LEVODOPA 25/100 TABLET PO SCH ×3 (09:02→21:37)
[2021-10-30] MEDS: BRIMONIDINE OPHTH DROPS 1 GTT BOTTLE 5ML OU SCH ×2 (09:03→21:37)
[2021-10-30] MEDS: buPROPion 100 MG TAB.SR.12H PO SCH (09:03)
--- NOTE | 2021-10-30 11:05 | Internal Med Progress Note ---
SUBJECTIVE Subjective Patient information: Note initiated : 10/30/21 at 11:02 am Service Date, if different from initiated Date: [] Patient: Angelic Grande a 76 y/o F admitted on 10/27/21 for Weakness. Chief Complaint: [] Interval history: Ms. Grande is a 76 year old F history of Parkinson disease, essential hypertension, mixed dyslipidemia, type 2 diabetes mellitus, hypothyroidism, frequent UTI, atrial fibrillation, depression, chronic kidney disease, presenting with 3 months history of reported loss of the appetite, minimal oral intake, nausea and vomiting, change in taste of the food. She is complaining of 3-month history of reported loss of appetite, minimal oral intake, nausea vomiting, and change to taste of the food. She is also complaining of epigastric, constant, nonradiating, mild 3 out of 10 severity, burning sensati ons abdominal pain. She denies any fever chills or diaphoresis. She also is complaining of unquantified weight loss. She also reports a history of frequent UTI and she is reporting urinary symptoms such as dysuria. Due to the multitude of her complaints, her daughter bring her into the ER today for further evaluations. Vital signs at ED presentation significant for tachycardia and tachypnea with heart rate and rate of breathing in the 130s and mid 20s, respectively. The above improved and back to the normal after her 2 L of fluid bolus given in the ED. Labs significant for lack of leukocytosis with WBC 8.6. Initial serum lactic acid level 3.4. UA suggestive of the presence of urinary tract infections. CT whole body did not show any acute changes. 10/26: Tolerating some CC diet. Dr. Elizondo evaluated the patient and recs. AGAINST EGD. recs. outpatient GI follow up. Denies abdominal pain. c/o mild nausea, no vomiting. c/o general body weakness. Denies fever or chills. Denies dysuria. Pending PT OT SLT dietitian evaluation. Blood and urine cultures no growth to date, continue Rocephin for UTI. 10/27: Afebrile overnight. Blood and urine cultures no growth to date. WBC 6.0. Dietitian resc. dysphagia diet, patient is tolerating it. PT recs. SNF placement, patient agrees. Pending SNF placement. Continue Rocephin for UTI. 4/18: Afebrile overnight. Urine culture grew coagulase negative staph. Blood culture no growth to date. WBC 6.5. Patient stated that she convinced her daughter that she could come home instead of going to the correction, we will have the staff to verify with the family before discharging the patient. We changed antibiotics from Rocephin to Ancef. 10/29: Afebrile overnight. WBC 5.0. Urine culture grew coagulase negative staph. Blood culture no growth to date. c/o chills. c/o dysuria. Poor appetite. Did not have much breakfast. Continue Ancef for UTI. Pending SNF placement. 10/30: Afebrile overnight. WBC 5.9. Urine culture grew coagulase negative staph. Blood culture no growth to date. Okay appetite. Denies any dysuria. Denies any fever or chills. Continue Ancef for UTI. Accepted by SNF, pending insurance pre- authorization. Constitutional Vitals: Vital Signs Temp Pulse Resp BP Pulse Ox 36.8 C 80 20 111/70 92 10/30/21 07:42 10/30/21 07:42 10/30/21 07:42 10/30/21 07:42 10/30/21 07:42 Period Temp Pulse Resp BP Sys/Davis Pulse Ox Last 24 Hr 36.3 C-37.1 C 79-85 14-22 94-124/58-78 92-99 Intake and Output 10/29/21 10/30/21 10/30/21 21:59 05:59 13:59 Intake Total 720 0 Output Total 0 Balance 720 0 Weight 140.977 kg Intake & Output: Intake & Output 10/29/21 10/30/21 10/30/21 21:59 05:59 13:59 Intake Total 720 0 Output Total 0 Balance 720 0 Weight 140.977 kg Intake: Nourishment/Supplement quantity 240 (ml) Oral 480 0 Output: Void Amount 0 Other: Meal Nourishment/Supplement Percent of Meal Consumed 100% Feeding Ability Assist with Tray Set Up Urine Color Dark Yellow Urine Odor Strong # Voids 1 General appearance: no acute distress and severe distress Head Head exam: Present atraumatic and normal inspection Eye Eye exam: Present normal appearance ENT ENT exam: Present mucous membranes moist, normal exam and normal external ear exam Neck Neck exam: Present normal inspection Respiratory Respiratory exam: Present normal respiratory exam Cardiovascular Cardiovascular exam: Present irregular rhythm GI/Abdominal GI/Abdominal exam: Present normal bowel sounds Back Exam Back exam: Present normal inspection Neurological Exam Neurological exam: Present alert and oriented X3 Skin Skin exam: Present intact and warm OBJ DATA Labs CBC & Chem 7: 10/30/21 05:35 10/30/21 05:35 Labs: Abnormal Lab Results 10/30/21 10/30/21 10/29/21 05:35 05:35 06:45 Hct MCHC MPV 11.3 H Brooks % (Auto) 13.8 H Lymph # (Auto) Sodium 131 L 129 L Chloride 95 L 93 L Carbon Dioxide 21 L Creatinine 1.2 H Glucose 112 H 114 H Phosphorus 2.1 L 10/29/21 10/28/21 10/28/21 06:45 05:26 05:26 Hct 45.0 H MCHC 30.4 L MPV 11.1 H 11.4 H Brooks % (Auto) Lymph # (Auto) 1.32 L 1.21 L Sodium 130 L Chloride 94 L Carbon Dioxide Creatinine 1.2 H Glucose 114 H Phosphorus 2.0 L Meds: Medications Acetaminophen (Acetaminophen 325 Mg Tablet) 650 mg PO Q6HP PRN; Protocol PRN Reason: Per Pain Protocol/Fever > 101 Albuterol/Ipratropium (Ipratropium/Albuterol 3 Ml Ampul.Neb) 3 ml NEB Q4HRT PRN PRN Reason: Wheezing Apixaban (Apixaban 5 Mg Tablet) 5 mg PO BID [facility] Last Admin: 10/30/21 09:02 Dose: 5 mg Documented by: Aspirin (Aspirin 81 Mg Tab.Chew) 81 mg PO DAILY [facility] Last Admin: 10/30/21 09:02 Dose: 81 mg Documented by: Baclofen (Baclofen 10 Mg Tablet) 10 mg PO DAILYP PRN PRN Reason: Muscle Spasm Last Admin: 10/28/21 21:10 Dose: 10 mg Documented by: Bisacodyl (Bisacodyl 5 Mg Tablet) 10 mg PO QDAY PRN PRN Reason: Constipation Last Admin: 10/27/21 08:53 Dose: 10 mg Documented by: Brimonidine Tartrate (Brimonidine Ophth Drops 1 Gtt Bottle 5ml) 1 gtt OU BID [facility] Last Admin: 10/30/21 09:03 Dose: 1 drop Documented by: Bupropion HCl (Bupropion 100 Mg Tab.Sr.12h) 100 mg PO DAILY [facility] Last Admin: 10/29/21 08:52 Dose: 100 mg Documented by: Carbidopa/Levodopa (Carbidopa/Levodopa 25/100 Tablet) 2 tab PO TID [facility] Last Admin: 10/30/21 09:02 Dose: 2 tab Documented by: Dextrose (Dextrose 50% 50 Ml Vial) 0 ml IV UD PRN PRN Reason: Per Sliding Scale Diagnostic Test (Pha) (Accu-Chek 1 Each Strip) 1 each FS [facility] Last Admin: 10/30/21 06:55 Dose: 1 each Documented by: Docusate Sodium (Docusate Sodium 100 Mg Capsule) 100 mg PO BID [facility] Last Admin: 10/30/21 09:02 Dose: 100 mg Documented by: Escitalopram Oxalate (Escitalopram 20 Mg Tablet) 20 mg PO DAILY [facility] Last Admin: 10/30/21 09:02 Dose: 20 mg Documented by: Glucose (Dextrose 31 Gm Oral.Susp) 15 gm PO PRN PRN PRN Reason: Hypoglycemia Potassium Chloride 20 meq/ (Dextrose) 260 mls @ 130 mls/hr IV UD PRN PRN Reason: hypokalemia Last Infusion: 10/27/21 14:30 Dose: Infused Documented by: Insulin Human Lispro (Insulin Lispro 1 Unit/0.01 Ml Unit) 0 unit SQ [facility]; Protocol Last Admin: 10/30/21 06:56 Dose: Not Given Documented by: Levothyroxine Sodium (Levothy[facility]ine 75 Mcg Tablet) [facility] Admin: 10/30/21 07:40 Dose: 75 mcg Documented by: Losartan Potassium (Losartan 25 Mg Tablet) 25 mg PO QDAY [facility] Last Admin: 10/30/21 09:02 Dose: 25 mg Documented by: Metoprolol Tartrate (Metoprolol Tartrate 25 Mg Tablet) 25 mg PO BID [facility] Last Admin: 10/30/21 09:02 Dose: 25 mg Documented by: Nitrofurantoin Macrocrystals (Nitrofurantoin Sr 100 Mg Capsule) 100 mg PO BID [facility] Last Admin: 10/30/21 09:02 Dose: 100 mg Documented by: Omeprazole (Omeprazole 20 Mg Capsule) [facility] Last Admin: 10/30/21 07:39 Dose: 20 mg Documented by: Ondansetron HCl (Ondansetron 4 Mg/2 Ml Vial) 4 mg IV Q6HP PRN PRN Reason: Nausea And Vomiting Last Admin: 10/29/21 15:32 Dose: 4 mg Documented by: Bimatoprost 0.01 % (Drops) 1 dose OU QDAY [facility] Last Admin: 10/30/21 09:02 Dose: 1 dose Documented by: Pimavanserin 34 Mg (Capsule) 1 dose PO QDAY [facility] Last Admin: 10/30/21 09:02 Dose: 1 dose Documented by: Brinzolamide [Azopt] 1 % Drops, Suspension 1 dose OU BID [facility] Last Admin: 10/30/21 09:03 Dose: 1 dose Documented by: Ongentys 50 Mg Cap 1 dose PO [facility] Last Admin: 10/29/21 21:08 Dose: 1 dose Documented by: Polyethylene Glycol (Polyethylene Glycol 3350 17 Gm Packet) 17 gm PO DAILYP PRN PRN Reason: Constipation Last Admin: 10/28/21 09:41 Dose: 17 gm Documented by: Senna (Sennosides 1 Tablet) 2 tab PO [facility] Last Admin: 10/29/21 21:08 Dose: 2 tab Documented by: Sodium Biphosphate/Sodium Phosphate (Fleets Adult Enema) 1 dose ID DAILYP PRN PRN Reason: constipation Last Admin: 10/27/21 16:25 Dose: 1 dose Documented by: Sodium Chloride (Sodium Chloride 1 Gm Tablet) 1 gm PO BIDP PRN PRN Reason: electrolyte replenishment Sodium Chloride (0.9 % Sodium Chloride 10 Ml Syringe) 10 ml IV Q8 [facility] Last Admin: 10/30/21 06:56 Dose: 10 ml Documented by: Tramadol HCl (Tramadol 50 Mg Tablet) 50 mg PO Q4-6HP PRN PRN Reason: Pain Last Admin: 10/28/21 18:53 Dose: 50 mg Documented by: Zolpidem Tartrate (Zolpidem 5 Mg Tablet) 5 mg PO HSP PRN PRN Reason: Insomnia A/P Assessment and plan (1) Atrial fibrillation: Status: Acute Qualifiers: Atrial fibrillation type: unspecified Qualified Code(s): I48.91 - Unspecified atrial fibrillation (2) Diabetes 1.5, managed as type 2: Status: Acute (3) Hyponatremia: Status: Acute (4) UTI (urinary tract infection): Status: Acute (5) Dysphagia: Status: Acute (6) GERD (gastroesophageal reflux disease): Status: Chronic (7) Hypothyroidism: Status: Chronic Qualifiers: Hypothyroidism type: acquired Qualified Code(s): E03.9 - Hypothyroid ism, unspecified (8) Hyperlipidemia: Status: Chronic Qualifiers: Hyperlipidemia type: mixed hyperlipidemia Qualified Code(s): E78.2 - Mixed hyperlipidemia (9) HTN (hypertension): Status: Chronic Qualifiers: Hypertension type: essential hypertension Qualified Code(s): I10 - Essential (primary) hypertension (10) Parkinson's disease: Status: Chronic Narrative A/P Narrative: Assessment and Plans: 1. UTI: Inpatient med surg s/p 2L NS bolus given in the ER, followed by saline lock Serial lactic acid 1.1 Procalcitonin 0.09 Blood culture, no growth to date Urine culture, Coagulase negative Staph cbc w/ auto diff in the morning to trend WBC Tylenol PRN fever Continue Ancef 2. Dsyphagia: DDx: Parkinson disease complications, diabetic gastroparesis Consult Dr. Elizondo, recs. against EGD; recs. outpatient GI f/u Speech therapy consultation Dietitian recs dysphagia diet 3. h/o Parkinson's disease: Physical therapy-->recs. SNF placement, Accepted by [facility], pending insurance pre- authorization Occupational therapy Sinemet 4. Atrial fibrillation: [id number] VASc score of 6 Eliquis Continue beta naya for rate control 5. Essential HTN: Currently soft blood pressure Continue beta naya for rate control while holding other oral antihypertensives and diuretics 6. Mixed dyslipidemia: Continue statin therapy 7. h/o TIA: Continue Aspirin and statin therapy as secondary prevention 8. Chronic kidney disease stage III: Avoid nephrotoxic agents saline lock CMP in the morning to trend kidney functions 9. h/o depression: Continue bupropion and escitalopram 10. Hypothyroidism: Continue thyroid replacement therapy 11. T2DM: HgA1c 7.6 Hold oral hypoglycemics SSI AC HS Accu Chek AC HS Hypoglycemia protocol Diabetic dysphagia diet 12: h/o GERD: Continue oral PPI from home regimen GI ppx: Continue oral PPI from home regimen DVT ppx: Eliquis Code status: Full Prognosis: stable Disposition: inpatient med surg; Accepted by SNF, pending insurance pre- authorization Time Spent With Patient Time: Total time spent is greater than 50% in coordination of care (as documented) at patient's floor/unit and/or counseling patient: Total time spent with greater than 50% in coordination of care (as documented) at patient's floor/unit and/or counseling patient:: 35 - 50 minutes QUALITY VTE Deep Vein Thrombosis/Pulmonary Embolism Present on Admission: No
[2021-10-30] MEDS: ONGENTYS PO SCH (21:36)
[2021-10-30] MEDS: SENNOSIDES 1 TABLET PO SCH (21:38)
[2021-10-31] MEDS: 0.9 % SODIUM CHLORIDE 10 ML SYRINGE IV SCH (04:39)
[2021-10-31] MEDS: LEVOTHYROXINE 75 MCG TABLET PO SCH (07:05)
[2021-10-31] MEDS: OMEPRAZOLE 20 MG CAPSULE PO SCH (07:05)
[2021-10-31] MEDS: INSULIN LISPRO 1 UNIT/0.01 ML UNIT SQ SCH ×2 (07:05→12:13)
[2021-10-31] MEDS: ASPIRIN 81 MG TAB.CHEW PO SCH (08:47)
[2021-10-31] MEDS: POLYETHYLENE GLYCOL 3350 17 GM PACKET PO PRN (08:47)
[2021-10-31] MEDS: APIXABAN 5 MG TABLET PO SCH (08:48)
[2021-10-31] MEDS: CARBIDOPA/LEVODOPA 25/100 TABLET PO SCH (08:48)
[2021-10-31] MEDS: buPROPion 100 MG TAB.SR.12H PO SCH (08:48)
[2021-10-31] MEDS: DOCUSATE SODIUM 100 MG CAPSULE PO SCH (08:48)
[2021-10-31] MEDS: LOSARTAN 25 MG TABLET PO SCH (08:48)
[2021-10-31] MEDS: NITROFURANTOIN SR 100 MG CAPSULE PO SCH (08:48)
[2021-10-31] MEDS: METOPROLOL TARTRATE 25 MG TABLET PO SCH (08:48)
[2021-10-31] MEDS: PIMAVANSERIN 34 MG PO SCH (08:48)
[2021-10-31] MEDS: ESCITALOPRAM 20 MG TABLET PO SCH (08:48)
[2021-10-31] MEDS: BIMATOPROST 0.01% OU SCH (08:49)
[2021-10-31] MEDS: BRIMONIDINE OPHTH DROPS 1 GTT BOTTLE 5ML OU SCH (08:49)
--- NOTE | 2021-10-31 11:59 | Discharge Summary ---
Discharge Provider Provider Patient information: Note initiated : 10/31/21 at 11:58 am Service Date, if different from initiated Date: [] Patient: Angelic Grande 76 y/o F admitted on 10/27/21 for Weakness. Chief Complaint: [] Date of admission: 10/27/21 12:20 Discharge date: 10/31/21 Primary care physician: Aj Ly MD Consults: 10/25/21 Consult to Physician [CONS] Stat Comment: Consulting Provider: Andrei Smith Reason For Exam: Physician to Consult Consult to Physician [CONS] Stat Comment: Consulting Provider: Jin Elizondo Reason For Exam: Physician to Consult 10/28/21 11:43 Consult to Physician [CONS] Routine Comment: snf referral Consulting Provider: [facility] Reason For Exam: Physician to Consult Discharge Meds Discharge Medications Home Medications brinzolamide 1 % eye drops,suspension (Azopt) 1 drp OPHTHALMIC BID ml 02/21/19 [History Confirmed 10/25/21 Last Taken Unknown] carbidopa 25 mg-levodopa 100 mg disintegrating tablet 2 tab PO TID 02/21/19 [History Confirmed 10/25/21 Last Taken Unknown] bimatoprost 0.01 % eye drops 1 drp OPHTHALMIC HS 12/15/19 [History Confirmed 10/25/21 Last Taken Unknown] brimonidine 0.2 % eye drops 1 drp OPHTHALMIC BID ml 12/15/19 [History Confirmed 10/25/21 Last Taken Unknown] blood sugar diagnostic (Contour Next Test Strips) #100 each 05/02/21 [Rx Confirmed 10/25/21 Last Taken Unknown] omeprazole 20 mg capsule,delayed release See Rx Instructions .ROUTE .COMPLEX #90 cap 07/01/21 [Rx Confirmed 10/25/21 Last Taken Unknown] glipizide 10 mg tablet 10 mg PO BID #60 tab 09/05/21 [Rx Confirmed 10/25/21 Last Taken Unknown] escitalopram oxalate 20 mg tablet See Rx Instructions .ROUTE .COMPLEX tab 10/17/21 [History Confirmed 10/25/21 Last Taken Unknown] pimavanserin 34 mg capsule 34 mg PO QDAY 10/17/21 [History Confirmed 10/25/21 Last Taken Unknown] spironolactone 25 mg-hydrochlorothiazide 25 mg tablet 1 tab PO QDAY tab 10/17/21 [History Confirmed 10/25/21 Last Taken Unknown] bupropion HCl 100 mg tablet,12 hr sustained-release See Rx Instructions .ROUTE .COMPLEX #90 tab 10/22/21 [Rx Confirmed 10/25/21 Last Taken Unknown] levothyroxine 75 mcg tablet See Rx Instructions .ROUTE .COMPLEX #30 tab 10/22/21 [Rx Confirmed 10/25/21 Last Taken Unknown] losartan 25 mg tablet 1 tab PO QDAY 10/25/21 [History Confirmed 10/25/21 Last Taken Unknown] polyethylene glycol 1 ea MISCELLANEOUS DAILY 10/25/21 [History Confirmed 10/25/21 Last Taken Unknown] Ongentys 50 mg PO DAILY 10/27/21 [History Confirmed 10/27/21 Last Taken Unknown] apixaban 5 mg tablet (Eliquis) 5 mg PO BID #90 tab 10/31/21 [Rx Last Taken Unknown] nitrofurantoin monohydrate/macrocrystals 100 mg capsule 100 mg PO BID 4 Days #8 cap 10/31/21 [Rx Last Taken Unknown] COURSE Hospital Course Hospital course: Ms. Grande is a 76 year old F history of Parkinson disease, essential hypertension, mixed dyslipidemia, type 2 diabetes mellitus, hypothyroidism, frequent UTI, atrial fibrillation, depression, chronic kidney disease, presenting with 3 months history of reported loss of the appetite, minimal oral intake, nausea and vomiting, change in taste of the food. She is complaining of 3-month history of reported loss of appetite, minimal oral intake, nausea vomiting, and change to taste of the food. She is also complaining of epigastric, constant, nonradiating, mild 3 out of 10 severity, burning sensations abdominal pain. She denies any fever chills or diaphoresis. She also is complaining of unquantified weight loss. She also reports a history of frequent UTI and she is reporting urinary symptoms such as dysuria. Due to the multitude of her complaints, her daughter bring her into the ER today for further evaluations. Vital signs at ED presentation significant for tachycardia and tachypnea with heart rate and rate of breathing in the 130s and mid 20s, respectively. The above improved and back to the normal after her 2 L of fluid bolus given in the ED. Labs significant for lack of leukocytosis with WBC 8.6. Initial serum lactic acid level 3.4. UA suggestive of the presence of urinary tract infections. CT whole body did not show any acute changes. 10/26: Tolerating some CC diet. Dr. Elizondo evaluated the patient and recs. AGAINST EGD. recs. outpatient GI follow up. Denies abdominal pain. c/o mild nausea, no vomiting. c/o general body weakness. Denies fever or chills. Denies dysuria. Pending PT OT SLT dietitian evaluation. Blood and urine cultures no growth to date, continue Rocephin for UTI. 10/27: Afebrile overnight. Blood and urine cultures no growth to date. WBC 6.0. Dietitian resc. dysphagia diet, patient is tolerating it. PT recs. SNF placement, patient agrees. Pending SNF placement. Continue Rocephin for UTI. 10/28: Afebrile overnight. Urine culture grew coagulase negative staph. Blood culture no growth to date. WBC 6.5. Patient stated that she convinced her daughter that she could come home instead of going to the assisted, we will have the staff to verify with the family before discharging the patient. We changed antibiotics from Rocephin to Ancef. 10/29: Afebrile overnight. WBC 5.0. Urine culture grew coagulase negative staph. Blood culture no growth to date. c/o chills. c/o dysuria. Poor appetite. Did not have much breakfast. Continue Ancef for UTI. Pending SNF placement. 10/30: Afebrile overnight. WBC 5.9. Urine culture grew coagulase negative staph. Blood culture no growth to date. Okay appetite. Denies any dysuria. Denies any fever or chills. Continue Ancef for UTI. Accepted by [facility], pending insurance pre- authorization. 10/31 Prior authorization to a group home facility was approved. The patient was discharged to the group home facility for rehab. Aspirin was discontinued at discharge as the patient is now on Eliquis for atrial fibrillation. Patient was discharged with 4 more days of nitrofurantoin for UTI. Discharge diagnosis: Urinary tract infection Secondary discharge diagnosis: Atrial fibrillation Time Spent with Patient Time attestation: Total time spent providing and/or coordinating discharge services: EXAM Constitutional Vitals: Temp Pulse Resp BP Pulse Ox 98.1 F 89 18 127/88 99 10/31/21 11:48 10/31/21 11:48 10/31/21 11:48 10/31/21 11:48 10/31/21 11:48 Discharge Plan Patient/Caregiver Discharge Instructions Activity: as per physical therapy Diet: Consistent Carbohydrate Prescriptions: New Eliquis 5 mg Tablet 5 mg PO BID Qty: 90 8RF nitrofurantoin monohyd/m-cryst 100 mg Capsule 100 mg PO BID 4 Days Qty: 8 0RF Continued bimatoprost 0.01 % drops 1 drp OPHTHALMIC HS 0RF brimonidine 0.2 % drops 1 drp OPHTHALMIC BID 0RF (DME) Contour Next Test Strips Strip See Rx Instructions .ROUTE .MEDSUPPLY Qty: 100 5RF Rx Instructions: Use to test blood glucose twice daily omeprazole 20 mg capsule,delayed release(DR/EC) See Rx Instructions .ROUTE .COMPLEX Qty: 90 3RF Dose Instruction: TAKE ONE CAPSULE BY MOUTH ONE TIME DAILY Rx Instructions: TAKE ONE CAPSULE BY MOUTH ONE TIME DAILY glipizide 10 mg tablet 10 mg PO BID Qty: 60 6RF levothyroxine 75 mcg tablet See Rx Instructions .ROUTE .COMPLEX Qty: 30 3RF Dose Instruction: TAKE ONE TABLET BY MOUTH ONE TIME DAILY Rx Instructions: TAKE ONE TABLET BY MOUTH ONE TIME DAILY bupropion HCl 100 mg tablet sustained-release 12 hr See Rx Instructions .ROUTE .COMPLEX Qty: 90 0RF Dose Instruction: TAKE ONE TABLET BY MOUTH ONE TIME DAILY Rx Instructions: TAKE ONE TABLET BY MOUTH ONE TIME DAILY Azopt 1 % drops,suspension 1 drp OPHTHALMIC BID 0RF carbidopa-levodopa 25-100 mg tablet,disintegrating 2 tab PO TID 0RF escitalopram oxalate 20 mg tablet See Rx Instructions .ROUTE .COMPLEX 0RF Dose Instruction: TAKE ONE TABLET BY MOUTH ONE TIME DAILY Rx Instructions: TAKE ONE TABLET BY MOUTH ONE TIME DAILY spironolacton-hydrochlorothiaz 25-25 mg tablet 1 tab PO QDAY 0RF pimavanserin 34 mg capsule 34 mg PO QDAY 0RF losartan 25 mg tablet 1 tab PO QDAY 0RF polyethylene glycol Powder 1 ea MISCELLANEOUS DAILY 0RF Ongentys 50 mg 50 mg PO DAILY 0RF Discontinued aspirin [Adult Low Dose Aspirin] 81 mg tablet,delayed release (DR/EC) 81 mg PO QDAY 0RF Follow Up Plan Follow up with: Aj Ly MD [Primary Care Provider] - Patient Disposition: Xfer SNF Rehab Potential: Fair I certify that the patient requires SNF services: Yes Overall status at discharge: patient is progressing back to baseline Discharge Orders: Discharge Order (Routine); Ordered 10/31/21 Ordered By: Conrad EVANGELISTA VTE Deep Vein Thrombosis/Pulmonary Embolism Present on Admission: No
== END 2021-10-31 13:55 | DRG 690 ==
LOC: MEDSUR 13:23 → ED 13:23 → MEDSUR 17:32
PROVIDERS: ADMIT Internal Medicine; ATTEND Internal Medicine